=== PATIENT | female | born 2000 | race Hispanic/Latino ===

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

== ENCOUNTER → 2020-01-29 12:40 | Outpatient (CLI) | payer OTHER, MEDICAID, SELFPAY ==
[2020-01-04 17:21] VITALS: BMI 21.2
[2020-01-25 16:46] VITALS: BMI 21.2
== END ==
PROVIDERS: PCP Pediatrics; Visit Provider Otolaryngology
DX: Z11.59 Encounter for screening for other viral diseases (principal)
CPT/HCPCS: 87635; G2023; U0003

== ENCOUNTER → 2020-02-01 | Outpatient (CLI) | payer OTHER, MEDICAID, SELFPAY ==
[2020-01-25 16:46] VITALS: BMI 21.2
--- NOTE | 2020-02-01 07:42 | TONS_PTH ---
PATIENT: RIC MODI LOC: [facility] U#:[id number] AGE/SX: 19/F ROOM: RE02/01/[address]: Dr. Corey Cuellar MD : 2000 BED: DIS: 02/01/2020 SPEC #: [id number] RECD: 02/01/20 14:53 STATUS: VIKAS REKeily #: [id number] MARCOS: 02/01/20 07:[address]: Corey Cuellar DEPT: SURGICAL PATHOLOGY RECD BY: Mateusz Deng ENTERED: 02/02/20 07:34 SP TYPE: TONSILS OTHR DR: Dr. Brayden Do MD [facility] Tissues: Tonsil, NOS Procedures: Surgery Specimen Level III HEADER OPERATION: Tonsillectomy PRE-OP DIAGNOSIS: Chronic tonsillitis TISSUE SUBMITTED: Tonsils (right pinned) MICROSCOPIC DIAGNOSIS Bilateral tonsils, tonsillectomy: Reactive lymphoid hyperplasia, consistent with chronic tonsillitis. Focal actinomyces colonization. EBEN:mattie 02/05/20 MICROSCOPIC DESCRIPTION Slides are reviewed. GROSS DESCRIPTION Received is one container labeled with the patient's name and designated tonsils - pin/tie on right are two tonsils that in aggregate weigh 5.1 gm. The right tonsil has a pin-tie on it and measures 2 x 1.5 x 1.3 cm. The left tonsil measures 2 x 2 x 1.3 cm. Both tonsils are similar in appearance. The external surfaces are pink-stockton, smooth, glistening and somewhat lobulated. Focally they are hemorrhagic, granular and bear cautery artifact. Serial cross sections through the tonsils reveal normal tonsillar architecture. Sections are submitted in two cassettes as follows: 1 - right tonsil, 2 - left tonsil. / EBEN:mattie 02/02/20 TC:3 CPT: 86515 x2
== END | disposition home or self-care (01) ==
LOC: LABSPEC 16:01
PROVIDERS: PCP Pediatrics; Referring Provider Otolaryngology; Visit Provider Otolaryngology
DX: J35.01 Chronic tonsillitis (principal)
CPT/HCPCS: 88304

== ENCOUNTER 2020-02-08 20:40 | Emergency (ER) | payer OTHER, MEDICAID, SELFPAY ==
[2020-01-25 16:46] VITALS: BMI 21.2
[2020-02-08 20:41] VITALS: BP 122/67; PULSE 69; RESP 18; TEMP 36.3; O2SAT 99
[2020-02-08] MEDS: 0.9% Normal Saline 1,000 ML 1000 ML IV (21:05)
[2020-02-08] MEDS: dexAMETHasone 10 MG/ML Vial IV (21:08)
[2020-02-08 21:59] LABS: Hematocrit 45.1 % (37-47); Hemoglobin 14.7 g/dL (12.0-15.0)
--- NOTE | 2020-02-08 22:02 | ED.VISSUMM ---
- ER Visit Summary Date of Service: 02/08/20 Chief Complaint: Post tonsillectomy bleeding History of Present Illness: The patient is a [address] soto. She had a tonsillectomy on January [address] Cuellar. She reports that she has bleeding that began today. She states that she is spitting up blood-tinged sputum. She denies any significant amount of bleeding. She reports that she has a burning, throbbing pain in her throat that is 10 on 10 at worst and 6-10 currently. Is worsened by nothing. She relieved by Tylenol. Patient reports that she can feel a scab on the left side that is choking me. Patient reports she is nauseated. She denies any fever, chills, abdominal pain, vomiting, or diarrhea. Physical Examination: Vitals: Stable. Afebrile. General: Well-nourished and well-developed. Head: Normocephalic atraumatic. HEENT: Significant enlargement of her uvula which is elongated and has clear edema at the tip of this. Is actually touching the back of her tongue. There is a small amount of blood in her oropharynx. This appears to be from the left tonsillar fossa. I did not appreciate any foreign body or scab. Neck: Supple, no lymphadenopathy. No JVD. Nontender. Cardiovascular: Regular rate and rhythm. No murmurs. Respiratory: No respiratory distress. Clear to auscultation bilaterally. Abdominal: Soft, nontender, nondistended, normal bowel sounds. No guarding, rebound, or peritoneal signs. Back: Nontender. Extremities: Nontender, no edema. Skin: Normal color, no rash. Neurologic: Alert and oriented ?3. Cranial nerves II through XII are intact. Normal strength and sensation. Psych: Normal affect. Test Results: H&H is 14.7 and 45.1. Emergency Department Course and Treatment: Patient had an IV placed. She was given a liter normal saline. She was given dexamethasone IV. She refused pain or nausea medications. Treatment Plan: Patient was discussed with Dr. Cuellar. He will see her in the office tomorrow for another exam. Return to the emergency department for any worsening symptoms. Disposition: To home in improved and stable condition. Impression: 1. 7-days status post tonsillectomy. This note was generated with Dragon dictation software. It may contain incorrect words, spelling, and punctuation that were not noted in review of the chart prior to signing ED Disposition - Plan for ED Patient: Instructions: ED Tonsillectomy Post-Op Bleeding Referrals: Boone Cuellar MD [STAFF PHYSICIAN] - 1 Day for another exam
[2020-02-08 22:20] VITALS: BP 101/72; PULSE 79; RESP 18; O2SAT 99
== END 2020-02-08 22:21 | disposition home or self-care (01) ==
LOC: ED 21:21
PROVIDERS: Emergency Provider Emergency Medicine; PCP Pediatrics
DX: J95.830 Postprocedural hemorrhage of a respiratory system organ or structure following a respiratory system procedure (principal); Y83.8 Other surgical procedures as the cause of abnormal reaction of the patient, or of later complication, without mention of misadventure at the time of the procedure; Y92.9 Unspecified place or not applicable
CPT/HCPCS: 85014; 85018; 96361; 96374; 99283; J7030; A4216

== ENCOUNTER 2021-02-26 23:23 | Emergency (ER) | payer MEDICAID, SELFPAY ==
[2021-02-26 23:24] VITALS: BP 127/79; PULSE 100; RESP 18; TEMP 36.1; O2SAT 100; BMI 19.4
[2021-02-27] VITALS: BP 119/86; PULSE 97; RESP 23; O2SAT 99
--- NOTE | 2021-02-27 00:07 | EKG12_ITS ---
Test Reason : CHEST PAIN Blood Pressure : / mmHG Vent. Rate : 093 BPM Atrial Rate : 093 BPM P-R Int : 140 ms QRS Dur : 068 ms QT Int : 314 ms P-R-T Axes : 082 065 069 degrees QTc Int : 390 ms Normal sinus rhythm Biatrial enlargement Abnormal ECG Confirmed by PETER CLIFFORD, TESFAYE ([id number]), associate editor ALIYAH VELOZ ([id number]) on 03/03/2021 9:24:30 AM Referred By: BB Confirmed By:TESFAYE GREEN MD
--- NOTE | 2021-02-27 00:08 | EDS_ITS ---
HPI History of Present Illness Chief Complaint: Chest Pain Narrative Narrative: 20-year-old female presenting with right sided upper chest pain. She states this developed after she had an upper endoscopy today. She does not describe shortness of breath. She describes the pain is 7 of 10 in severity. Patient's upper endoscopy showed esophagitis. She is started on a PPI. Patient states that she has had some chronic nausea and difficulty keeping food down. She also states has had some weight loss. Her ALT was abnormal and she states that she was sent for a bone scan which was also normal. [facility] Medical History Bilateral headaches Chronic neck pain Chronic thoracic back pain Environmental allergies GERD (gastroesophageal reflux disease) Intertrigo Macromastia Shoulder pain Home Medications pantoprazole [Protonix] 40 mg PO DAILY 02/26/21 [History Last Taken Unknown] Allergy/AdvReac Type Severity Reaction Status Date / Time No Known Allergies Allergy Verified 11/13/20 10:48 Family History Grandmother Breast cancer Cancer Aunt Breast cancer Surgical History History of tonsillectomy History of wisdom tooth extraction Social History Smoking Status: Never smoker alcohol intake: never substance use type: does not use additional social history: Does Not Take Aspirin Does Not Take Ibuprofen ROS ROS ED Constitutional Constitutional ED: Denies chills or fever(s) Eyes Eyes: Denies blurry vision or change in vision ENT ENT ED: Denies rhinorrhea or sore throat Cardiovascular Cardiovascular: Reports chest pain; Denies palpitations or racing heartbeat Respiratory/Chest Respiratory/Chest: Reports cough; Denies dyspnea Gastrointestinal Gastrointestinal: Reports nausea and vomiting; Denies abdominal pain Genitourinary Genitourinary ED: Denies dysuria or hematuria Musculoskeletal Musculoskeletal: Denies arthralgias, back pain, myalgias or neck pain Integumentary Denies abscess or Abrasions Neurologic Neurologic: Denies headache(s) or paresthesias EXAM Physical Exam Const Vital Signs: 02/26/21 23:24 02/26/21 23:55 02/27/21 00:00 Temperature 96.9 F L Temperature Source Temporal Pulse Rate 100 97 Respiratory Rate 18 23 H Respiratory Effort Normal Blood Pressure 127/79 H 119/86 H Blood Pressure Mean 95 97 Pulse Ox 100 99 Oxygen Delivery Method Room Air Room Air 02/27/21 02:05 02/27/21 02:43 Temperature Temperature Source Pulse Rate 72 Respiratory Rate 14 Respiratory Effort Blood Pressure 100/64 Blood Pressure Mean Pulse Ox 98 Oxygen Delivery Method Room Air Positive well developed General Appearance ED: well developed and NAD; Negative for pallor HEENT Reports moist mucous membranes normocephalic and atraumatic Eyes PERRL and EOMs intact bilaterally Neck no lymphadenopathy and supple Neck Narrative: No crepitance Chest Wall inspection of chest normal and palpation of chest normal Resp normal respiratory effort and clear to auscultation bilaterally Effort and Inspection: respiratory distress Cardio regular rate and regular rhythm Neuro oriented x3 Sensorium / Orientation: awake and alert Psych mental status grossly normal Skin no rashes or lesions noted and no wounds General Skin Exam: Negative for jaundice or pallor Heart Score History: Slightly/Non-Suspicious ECG: Normal Age: </= 45 years Risk Factors: No Risk Factors Troponin: </= Normal Limit Score: 0 MDM MDM MDM Narrative Medical decision making narrative: Patient presented with right-sided chest pain which is sharp and aching and has been lasting since she had her endoscopy today. She does not report shortness of breath. EKG performed on arrival shows a sinus rhythm at 93 bpm without signs of ST elevation or depression on my interpretation. Chest x-ray shows no acute cardiopulmonary process on my interpretation and the radiologist does agree. Blood work shows a slight leukocytosis at 12.0, hemoglobin 13.2, crit 41.1, platelets 198. Renal function and electrolytes are normal. BUN/creatinine ratio is slightly elevated however patient has not complaining of lightheadedness or dizziness. She is likely a little bit dehydrated secondary to bowel prep. Her high-sensitivity troponin is negative at less than 3 and therefore rules her out for ACS. Patient was given morphine and Zofran and she felt improved. I feel she is safe to be discharged home at this point. Impression: 1. Chest pain noncardiac Lab Data Attestation: I reviewed the patient's lab results. Labs: Laboratory Results - last 24 hr 02/27/21 02/27/21 00:12 00:12 WBC 12.0 H RBC 4.82 Hgb 13.2 Hct 41.1 MCV 85.3 MCH 27.4 MCHC 32.1 RDW Std Deviation 45.1 H RDW Coeff of Franck 14.5 Plt Count 198 MPV 10.3 Immature Gran % (Auto) 0.300 Neut % (Auto) 70.5 H Lymph % (Auto) 22.4 Smyth % (Auto) 5.7 Eos % (Auto) 0.8 Baso % (Auto) 0.3 Absolute Neuts (auto) 8.4 H Absolute Lymphs (auto) 2.68 Nucleated RBC % 0 Sodium 142 Potassium 3.7 Chloride 105 Carbon Dioxide 30.0 Anion Gap 7 BUN 17 Creatinine 0.84 Estim Creat Clear Calc 88.76 Est GFR (MDRD) Af Amer 110 Est GFR (MDRD) Non-Af 91 BUN/Creatinine Ratio 20.3 H Glucose 103 Calcium 8.7 Troponin I High Sens < 3 L Radiography Diagnostic Testing: Radiology Impression Chest X-Ray 02/27/21 01:20 IMPRESSION: Normal x-ray examination of the chest. Electronically Signed: Berry Maldonado MD at 1:41 EDT Tel , Service support , Discharge Plan Triage Chief Complaint: Chest Pain ED Provider: Harpreet Alvarez Dx/Rx/DC Orders Instructions: ED Chest Pain, Noncardiac Prescriptions: No Action pantoprazole [Protonix] 40 mg Tablet,Delayed Release (Dr/Ec) 40 mg PO DAILY RF: 0 Primary Care Provider: Brayden Do Referrals: Brayden Do MD [Primary Care Provider] - Disposition Disposition: Home, Self Care Discharge Date/Time: 02/27/21 02:43
[2021-02-27 00:18] LABS: Absolute Lymphocyte Count 2.68 X10^3/uL (0.83-4.51); Absolute Neutrophil Count 8.4 X10^3/uL (2.0-7.7); Basophil# 0.04 X10^3/uL; Basophil% 0.3 % (0-1); Eosinophil# 0.09 X10^3/uL; Eosinophils% 0.8 % (0-5); Hematocrit 41.1 % (37-47); Hemoglobin 13.2 g/dL (12.0-15.0); Lymphocyte # 2.68 X10^3/ul (0.83-4.51); Lymphocyte % 22.4 % (19-41); Mean Corp Hgb Conc 32.1 g/dL (32-36); Mean Corpuscular Hgb 27.4 pg (27.0-32.0); Mean Corpuscular Volume 85.3 fL (81-99); Mean Platelet Vol. 10.3 fl (6.2-12.0); Monocyte# 0.68 X10^3/uL; Monocyte% 5.7 % (0-10); NRBC Flagged by Analyzer 0 % (0-5); Neutrophil # 8.42 X10^3/uL (2.7-7.7); Neutrophil % 70.5 % (47-70); Platelet Count 198 K/mm3 (150-450); RBC Distribution Width CV 14.5 % (11.6-14.6); RBC Distribution Width SD 45.1 fl (35.1-43.9); Red Blood Count 4.82 M/mm3 (4.2-5.4)
[2021-02-27] MEDS: Morphine 4 MG/ML Syringe IV (00:25)
[2021-02-27] MEDS: Ondansetron 4 MG/2 ML Vial IV (00:25)
[2021-02-27 00:37] LABS: Anion Gap 7 (5-15); BUN 17 mg/dL (7-18); BUN/Creat Ratio 20.3 RATIO (10-20); Calcium,Total 8.7 mg/dL (8.5-10.1); Chloride 105 mmol/L (98-107); Creatinine, Serum 0.84 mg/dL (0.55-1.02); EST Glomerular Filtration Rate 91 mL/min (>60); Est Glom Filt Rate - Afr Amer 110 mL/min (>60); Estimated Creatinine Clearance 88.76 ml/min; Glucose 103 mg/dL (74-106); Potassium 3.7 mmol/L (3.5-5.1); Sodium Level 142 mmol/L (136-145); Troponin-I HS < 3 pg/mL (3.0-54.0)
--- NOTE | 2021-02-27 01:20 | RAD_ITS ---
STUDY: X-RAY CHEST REASON FOR EXAM: Female, 20 years old. Chest pain TECHNIQUE: PA and lateral chest radiograph COMPARISON: None. FINDINGS: The lungs are clear and expanded. There is no demonstrated pleural abnormality. Normal size heart. Normal mediastinum and deanna. Normal visualized pulmonary arteries. Normal visualized aortic arch and descending thoracic aorta. Normal visualized thoracic spine. Normal visualized ribs, clavicles, and shoulders. There is no demonstrated abnormality of the visualized soft tissue structures of the upper abdomen. RAD/Chest PA and Lateral IMPRESSION: Normal x-ray examination of the chest. Electronically Signed: Berry Maldonado MD at 1:41 EDT Tel , Service support ,
[2021-02-27 02:43] VITALS: BP 100/64; PULSE 72; RESP 14; O2SAT 98
== END 2021-02-27 02:43 | disposition home or self-care (01) ==
PROVIDERS: Emergency Provider Student in an Organized Health Care Education/Training Program; PCP Pediatrics
DX: R07.89 Other chest pain (principal); K21.00 Gastro-esophageal reflux disease with esophagitis, without bleeding; R63.4 Abnormal weight loss; R11.2 Nausea with vomiting, unspecified; G89.29 Other chronic pain; M54.2 Cervicalgia; M54.6 Pain in thoracic spine
CPT/HCPCS: 71046; 80048; 84484; 85025; 93005; 96374; 96375; 99284; A4216; J2405

== ENCOUNTER → 2023-04-13 | Outpatient (CLI) | payer MEDICAID, SELFPAY ==
--- NOTE | 2023-04-13 10:16 | RAD_ITS ---
STUDY: X-RAY CHEST REASON FOR EXAM: Female, 22 years old. Persistent cough TECHNIQUE: PA and lateral views of the chest. COMPARISON: Comparison is made with prior studies February 27, 2021. FINDINGS: The lungs are clear and expanded. Scattered calcified granulomas. There is no demonstrated pleural abnormality. Normal size heart. Normal mediastinum and deanna. Normal visualized pulmonary arteries. Normal visualized aortic arch and descending thoracic aorta. Normal visualized thoracic spine. Normal visualized ribs, clavicles, and shoulders. There is no demonstrated abnormality of the visualized soft tissue structures of the upper abdomen. RAD/Chest PA and Lateral IMPRESSION: Normal x-ray examination of the chest. Electronically Signed: Erik Morejon MD at 14:49 EDT ,
[2023-04-13 12:11] LABS: Absolute Lymphocyte Count 1.36 X10^3/uL (0.83-4.51); Absolute Neutrophil Count 4.3 X10^3/uL (2.0-7.7); Basophil# 0.03 X10^3/uL; Basophil% 0.5 % (0-1); Eosinophil# 0.06 X10^3/uL; Hematocrit 44.7 % (37-47); Hemoglobin 14.8 g/dL (12.0-15.0); Lymphocyte # 1.36 X10^3/ul (0.83-4.51); Mean Corp Hgb Conc 33.1 g/dL (32-36); Mean Corpuscular Hgb 29.1 pg (27.0-32.0); Mean Corpuscular Volume 87.8 fL (81-99); Mean Platelet Vol. 11.6 fl (6.2-12.0); Monocyte# 0.36 X10^3/uL; Monocyte% 5.8 % (0-10); NRBC Flagged by Analyzer 0 % (0-5); Neutrophil # 4.34 X10^3/uL (2.7-7.7); Neutrophil % 70.4 % (47-70); Platelet Count 198 K/mm3 (150-450); RBC Distribution Width CV 12.8 % (11.6-14.6); RBC Distribution Width SD 41.5 fl (35.1-43.9); Red Blood Count 5.09 M/mm3 (4.2-5.4); White Blood Count 6.2 K/mm3 (4.4-11.0)
[2023-04-13 12:49] LABS: AST(SGOT) 20 U/L (15-37); Alanine Aminotransfer ALT/SGPT 29 U/L (13-56); Albumin, Serum 3.9 g/dL (3.2-5.0); Alkaline Phosphatase 97 U/L (45-117); Anion Gap 8 (5-15); BUN 11 mg/dL (7-18); BUN/Creat Ratio 14.2 RATIO (10-20); Calcium,Total 8.9 mg/dL (8.5-10.1); Chloride 105 mmol/L (98-107); Creatinine, Serum 0.77 mg/dL (0.55-1.02); EST Glomerular Filtration Rate 98 mL/min (>60); Est Glom Filt Rate - Afr Amer 118 mL/min (>60); Glucose 96 mg/dL (74-106); Potassium 3.3 mmol/L (3.5-5.1); Protein, Total 7.9 g/dL (6.4-8.2); Sodium Level 139 mmol/L (136-145); Thyroid Stim Hormone (TSH) 2.38 uIU/mL (0.358-3.74)
[2023-04-13 12:50] LABS: Vitamin D,25 Hydroxy 38.8 ng/mL
== END | disposition home or self-care (01) ==
PROVIDERS: PCP Internal Medicine; Referring Provider Internal Medicine; Visit Provider Internal Medicine
DX: F32.A Depression, unspecified (principal); F41.9 Anxiety disorder, unspecified; R05.8 Other specified cough
CPT/HCPCS: 36415; 71046; 80053; 82306; 84443; 85025

== ENCOUNTER 2023-05-30 14:17 | Emergency (ER) | payer MEDICAID, SELFPAY ==
[2023-05-30 14:19] VITALS: BP 114/80; PULSE 105; RESP 16; TEMP 36.4; O2SAT 100
--- NOTE | 2023-05-30 15:03 | RAD_ITS ---
EXAM: XR LEFT FOOT COMPLETE, 3 OR MORE VIEWS CLINICAL INDICATION: injury TECHNIQUE: Frontal, lateral and oblique views of the left foot. COMPARISON: No relevant prior studies available. FINDINGS: BONES/JOINTS: Comminuted fracture of the fifth metatarsal bone. Preservation of the joint space. No sclerotic or destructive changes observed. SOFT TISSUES: Unremarkable. No soft tissue swelling or gas. No radiopaque foreign body. RAD/Foot min 3 Views IMPRESSION: Comminuted fracture of the fifth metatarsal bone. Electronically Signed: Wes Cintron MD at 15:40 EST ,
--- NOTE | 2023-05-30 15:03 | RAD_ITS ---
EXAM: XR LEFT ANKLE COMPLETE, 3 OR MORE VIEWS CLINICAL INDICATION: injury TECHNIQUE: Frontal, lateral and oblique views of the left ankle. COMPARISON: No relevant prior studies available. FINDINGS: BONES/JOINTS: Unremarkable. No acute fracture. No subluxation. Normal alignment. Preservation of the joint space. No sclerotic or destructive changes observed. SOFT TISSUES: Unremarkable. No soft tissue swelling or gas. No radiopaque foreign body. RAD/Ankle min 3 Views IMPRESSION: Negative left ankle x-rays. Electronically Signed: Wes Cintron MD at 15:41 EST ,
--- NOTE | 2023-05-30 15:06 | EDS_ITS ---
HPI History of Present Illness Chief Complaint: Lower Extremity Injury Informant: patient Occured/Mechanism Mechanism/Context: Yes fall Onset/Context/Timing Onset: Today Context: Sudden Onset Timing: Continuous Quality of Pain: Aching Location: L foot/ankle Current Severity: Severe Maximum Severity: Severe Worsened by: moving, WBing Relieved by: rest Associated Symptoms Associated Symptoms: Negative for Parasthesia, Weakness or Loss of Funtion Narrative Narrative: Patient states she injured her left foot and ankle when she was practicing ice getting turned in the kitchen floor, she shows a video where it appears upon putting her left foot down it inverted as she slipped, causing her to fall, landing on the outside of her foot where the majority of the pain is. She denies other injury. Difficult to put weight on since the injury. States she felt a crack somewhere in her left foot when it happened. [facility] Medical History Bilateral headaches Chronic neck pain Chronic thoracic back pain Environmental allergies Family history of breast cancer GERD (gastroesophageal reflux disease) H/O emotional problems Intertrigo Macromastia Shoulder pain Home Medications albuterol sulfate 90 mcg/actuation aerosol inhaler 2 puff inhalation Q6H PRN shortness of breath or wheezing #8.5 grams 04/13/23 [Rx Last Taken Unknown] fluticasone propionate 50 mcg/actuation nasal spray,suspension (Flonase Allergy Relief) 1 spray intranasal DAILY PRN allergy symptoms #16 grams 04/13/23 [Rx Last Taken Unknown] bupropion HCl 150 mg tablet,12 hr sustained-release (Wellbutrin SR) 150 mg PO BID #60 ea 05/18/23 [Rx Last Taken Unknown] hydrocodone-acetaminophen 5-325mg 5mg-325mg 1 tab PO Q6H PRN PRN Pain 3 days #12 TABLETS 05/30/23 [Rx Last Taken Unknown] Allergy/AdvReac Type Severity Reaction Status Date / Time house dust Allergy Mild Rash Verified 05/18/23 08:05 Family History Grandmother Breast cancer Cancer Aunt Breast cancer Surgical History History of tonsillectomy History of wisdom tooth extraction Social History household members: family current occupational status: employed current occupation: daycare Smoking Status: Never smoker Electronic Cigarette Use: not used alcohol intake: never substance use type: does not use what type of physical activity do you participate in: none do you feel safe at home: Yes additional social history: Does Not Take Aspirin Does Not Take Ibuprofen ROS ROS ED Constitutional Constitutional ED: Denies chills or fever(s) Musculoskeletal Musculoskeletal: Reports extremity pain; Denies neck pain Integumentary Denies Abrasions, rash or wounds Neurologic Neurologic: Denies paresthesias or weakness EXAM Physical Exam Const Vital Signs: 05/30/23 14:19 Temperature 97.6 F L Temperature Source Temporal Pulse Rate 105 H Respiratory Rate 16 Blood Pressure 114/80 Blood Pressure Mean 91 Pulse Ox 100 Oxygen Delivery Method Room Air Positive well nourished and well developed General Appearance ED: well developed and NAD Neck full ROM and supple Back/Spine normal ROM and normal to inspection Extremity Extremity Narrative: Limited range of motion left ankle due to pain. She has tenderness in the left metatarsal, mostly the distal half where there is some bruising laterally localized swelling no deformities. No significant tenderness in any of the toes or the midfoot dorsally, but she does have some localized additional swelling and bruising with tenderness superior to the base of the fifth metatarsal which overall is nontender, just distal/anterior to the lateral malleolus, which is barely tender to posterior aspect distally. No deformities anywhere. Nontender at the proximal fibula and full range of motion of the knee and hip without any pain. No other foot tenderness including the heel. Neuro oriented x3, no focal motor deficits and no sensory deficits noted Sensorium / Orientation: alert Psych mental status grossly normal and thought process normal Skin no wounds Rashes: no rashes MDM MDM MDM Narrative Medical decision making narrative: Three-view x-ray series of the left foot as interpreted by myself and radiology shows a comminuted fracture of the fifth metatarsal shaft, it is in the distal half but does not involve the metaphysis or the joint. Three-view x-ray series of the left ankle on my interpretation is negative for fracture. Radiology in agreement. Discussed with Dr. Patel with podiatry, he recommends splinting the patient so she does not put any weight on it, given her crutches and pain medication following up soon in the office. Radiography Diagnostic Testing: Clinical Impression(s) from Imaging Studies Ankle X-Ray 05/30/23 15:03 IMPRESSION: Negative left ankle x-rays. Electronically Signed: Wes Cintron MD at 15:41 EST , Foot X-Ray 05/30/23 15:03 IMPRESSION: Comminuted fracture of the fifth metatarsal bone. Electronically Signed: Wes Cintron MD at 15:40 EST , Procedures Lower Extremity Splints Lower Extremity Splint: Orthoglass and - (Posterior short leg, extra width of orthoglass gently curved around peroneal aspect of foot where fx located and ankle dorsiflexed to 90 deg; neurovascularly intact distally after placement by myself.) Splint Fabrication: Fabricated Location: Left Discharge Plan Triage Chief Complaint: Lower Extremity Injury ED Provider: Kenny Sherwood Dx/Rx/DC Orders Clinical Impression: Closed fracture of fifth metatarsal bone of left foot, Left ankle sprain Instructions: Using Crutches: [id number]-[id number]-Ihrkvpf, ED Fracture, Foot, ED Splints and Casts Prescriptions: New hydrocodone-acetaminophen [hydrocodone-acetaminophen] 5-325 mg tablet 1 tab PO Q6H PRN PRN (Reason: Pain) 3 Days Qty: 12 0RF No Action fluticasone propionate [Flonase Allergy Relief] 50 mcg/actuation spray,suspension 1 spray intranasal DAILY PRN (Reason: allergy symptoms) Qty: 16 0RF Rx Instructions: administer into each nostril albuterol sulfate 90 mcg/actuation HFA aerosol inhaler 2 puff inhalation Q6H PRN (Reason: shortness of breath or wheezing) Qty: 8.5 0RF bupropion HCl [Wellbutrin SR] 150 mg tablet sustained-release 12 hr 150 mg PO BID Qty: 60 1RF Rx Instructions: take 1 tablet daily for 3 days, then increase to twice daily Primary Care Provider: Carmencita Bullard Referrals: Carmencita Bullard MD [Primary Care Provider] - Dev Patel DPM [Med Staff - Active Staff] - As soon as possible
[2023-05-30] MEDS: HYDROcodone Bitartrate/Apap 5/325 Tablet PO (15:54)
== END 2023-05-30 17:14 | disposition home or self-care (01) ==
PROVIDERS: Emergency Provider Emergency Medicine; PCP Internal Medicine; Visit Provider Emergency Medicine
DX: S92.352A Displaced fracture of fifth metatarsal bone, left foot, initial encounter for closed fracture (principal); S93.402A Sprain of unspecified ligament of left ankle, initial encounter; W01.0XXA Fall on same level from slipping, tripping and stumbling without subsequent striking against object, initial encounter; Y92.000 Kitchen of unspecified non-institutional (private) residence as the place of occurrence of the external cause; Z79.899 Other long term (current) drug therapy
CPT/HCPCS: 29515; 73610; 73630; 99283

== ENCOUNTER → 2023-06-17 | Outpatient (CLI) | payer MEDICAID, SELFPAY ==
--- NOTE | 2023-06-18 13:50 | SPIR_ITS ---
Spirometry PFT Testing Spirometry PFT Testing: COMPLETE PULMONARY FUNCTION TEST INTERPRETATION Brief HPI: Patient is a 22-year-old female, currently under the care of Dr. Bullard, who presents to [facility] for complete pulmonary function tests secondary to diagnosis of cough. Respiratory therapist reports good effort and reproducible results. Interpretation: Forced expiration spirometry shows no large airways obstructive ventilatory def ect with an FEV1 of 112% predicted. There is no significant bronchodilator response by strict ATS criteria. Spirograms are of good quality and plateau normally. The respiratory flow volume loop shows a normal pattern. No previous pulmonary function tests were available for review. Impression: Normal spirometry. Consider a bronchoprovocation study if asthma is suspected
== END | disposition home or self-care (01) ==
LOC: PSN 09:20
PROVIDERS: PCP Internal Medicine; Referring Provider Internal Medicine; Visit Provider Internal Medicine
DX: R05.8 Other specified cough (principal)
CPT/HCPCS: 94060

== ENCOUNTER 2023-07-19 09:00 | Outpatient (RCR) | payer MEDICAID, SELFPAY ==
--- NOTE | 2023-06-10 18:59 | HP.PTEVAL ---
Patient's Visit Information Visit Information Visit Information: RIC MODI is a 22 year old F referred to Physical Therapy by Dr. Carmencita Bullard MD with a diagnosis of Mid back pain, dorsalgia. Date of Evaluation: 06/10/23 Physical Therapist: Panfilo Pagan, DPT, OCS, CSCS Visit Plan Frequency: 3x /Week Duration: 4-6 Weeks Plan: 3x/week for 4-6 weeks 1. MH and US to L scapular rhomboids, DEEP tissue release to same 2. work on thoracic ext mobs and ext adn L rotation ROM/stretching 3. strengthen posture and scapula (start prone and work to gym achines) Subjective Subjective: Been having problems with back for long time. Had previous PT and chiropractic to show insurance. That was 2 yrs ago. Pain is mid back L >R and into L shoulder blade. it is conssistent. Insidious onset. 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 Constant but worse with standing or sitting for long time. Activity for > 1 hr. No numbenss or tingling. Sleep is interrupted if she overdoes it. On crutches due to L broken foot, NWB L now for another week. Crutches do not help or hurt back. 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 Prior went to gym for [employer]. CV and general ex and it did not make back worse(TM, stairmaster) Pain Mid back pain: Pain Intensity (Out of 10): 2 Pain Intensity Range: 2 and 7 Objective Objective: Ambulates with crutches NWB L into PT with unrelated broken foot and boot on foot holding L out in front. Feels better when aI ask her to flex knee behind her. Trasnfer adn gait I. Tender to palpation L scapular medial rhomboids and traps only, also tender to PA pressure mid thoracic spine in same area be scap. Limited thoracic extension in this same area, Forward shoulder protracted scap posture. Rounded kyphosis. L rotation thoracic is painful, r is not, slightly limited L.Kumbar and cervical AROM is full and WFL. ribs seem to be appropriate and not painful L and R. reflexes bi and tri and patella and achilles 2/3(L achilles not tested due to boot) sensation LE and UE WNL to gross light touch. strength is 4/5 in LE without myotomal problems, some thoracic pain with L hip flexion resisted. UE strength flexion and horiz adduction weak and unstable in shoulder 3/5, abd 3+ , all casue some L scap pain. elbows and wrists 4/5 without pain. Full aROM UE without increased pain. repeated L rotation seems to increase motion in rotation. - slump and - SLR. Balance/Special Test Scores Oswestry Low Back Score: 11 Goals Goal 1:: I appropriat eROM and strength to limit future problems. 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 Goal Time Frame: 4-6 Weeks Rehabilitation Potential Physical Therapy Diagnosis: mid thoracic pain which limits her comfort and work ability. Rehabilitation Potential: Fair Anticipated Interventions Patient/Client Instruction: Educate patient on: Condition and Plan of Care For the Purpose of:: To decrease pain, To increase ROM, To improve nutrient delivery to tissue, To improve muscle performance and motor function, To increase tolerance to activity/condition/position and To improve ability of physical actions for home/community/work/leisure Therapeutic Exercise to Include: Strength training, Postural training, Flexibilty training, Passive ROM, Active ROM and Reji Exercises For the Purpose of:: To decrease pain, To increase ROM, To improve nutrient delivery to tissue, To improve muscle performance and motor function, To increase tolerance to activity/condition/position and To improve ability of physical actions for home/community/work/leisure Manual Therapy Techniques to Include: Mobilization, Passive ROM and Soft tissue mobilization For the Purpose of:: To decrease pain, To increase ROM, To improve nutrient delivery to tissue, To improve muscle performance and motor function, To increase tolerance to activity/condition/position and To improve ability of physical actions for home/community/work/leisure Thermo therapy (hot pack): Yes Ultrasound (thermal/non thermal): Yes (thermal) For the Purpose of:: To decrease pain, To increase ROM, To improve nutrient delivery to tissue and To improve muscle performance and motor function Text: Thank you for the opportunity to evaluate your patient. For Medicare and Medicare HMO plans, please review the plan of care and approve it. It will need to be FAXED BACK to us at [phone] for Medicare purposes. For Medicare only, by signing this I certify the plan of care. Please let me know if there are questions or concerns regarding this plan of care. Physician Signature: Date:
--- NOTE | 2023-07-13 17:11 | HP.PTREVAL ---
Re-Evaluation Intro: Dr. Carmencita Bullard MD, It has been my pleasure to treat RIC MODI over the last 9 visits for Mid back pain, dorsalgia. Please see the progress note below for an update on the physical therapy plan of care! Subjective Subjective: Pt and doctor requesting note from therapist regarding lack of sufficient progress. Objective Objective/Function: Overall based on a review of daily notes, pt seems to get minimal short lasting relief fromt he treatments and no lasting relief. Better days and worse days and today pain is worse than usual. Pt was not seen today by therapist but seems to be lacking credible improvement based on notes, unable to check objectively today. However, she has been seen for a lot of treatments and now would be a good time for patient to see doctor for next medical step due to lack of improvement. Plan Plan Plan: Continue plan of care unless doctor office has other recommendations based on this note 4 more visits in POC. Balance/Gait/Functional tests Balance/Special Test Scores Oswestry Low Back Score: 11 Goals Goals Goal 1:: I appropriat eROM and strength to limit future problems. 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 Goal Time Frame: 4-6 Weeks Anticipated Interventions Anticipated Interventions Patient/Client Instruction: Educate patient on: Condition and Plan of Care For the Purpose of:: To decrease pain, To increase ROM, To improve nutrient delivery to tissue, To improve muscle performance and motor function, To increase tolerance to activity/condition/position and To improve ability of physical actions for home/community/work/leisure Therapeutic Exercise to Include: Strength training, Postural training, Flexibilty training, Passive ROM, Active ROM and Reji Exercises For the Purpose of:: To decrease pain, To increase ROM, To improve nutrient delivery to tissue, To improve muscle performance and motor function, To increase tolerance to activity/condition/position and To improve ability of physical actions for home/community/work/leisure Manual Therapy Techniques to Include: Mobilization, Passive ROM and Soft tissue mobilization For the Purpose of:: To decrease pain, To increase ROM, To improve nutrient delivery to tissue, To improve muscle performance and motor function, To increase tolerance to activity/condition/position and To improve ability of physical actions for home/community/work/leisure Thermo therapy (hot pack): Yes Ultrasound (thermal/non thermal): Yes (thermal) For the Purpose of:: To decrease pain, To increase ROM, To improve nutrient delivery to tissue and To improve muscle performance and motor function Re-Evaluation Ending Re-evaluation ending: Please do not hesitate to contact me at [phone] by phone or if you have questions or concerns regarding this new plan of care! Sincerely, Panfilo Pagan, DPT, OCS, CSCS
--- NOTE | 2023-07-19 09:46 | HP.PTDCSUM_ITS ---
Discharge Summary D/C summary: It has been my pleasure to treat RIC MODI referred by Dr. Carmencita Bullard MD, with the diagnosis of Mid back pain, dorsalgia for a total of 11 visit(s). Discharge Date: 07/19/23 Please see the following information for a summary of their discharge status. Subjective Subjective: Pain this weekend up to 8/[address] [place] walking around. Worse as she walks more. Sleep is still interrupted but can sleep once sleeping. Sometimes worse in morning. 410 this am is a good day. Rarely has no pain. Pain Mid back pain: Pain Intensity (Out of 10): 4 Overall Improvement % Improvement: 0 Objective Objective/Function: Full aROM LB but L rotation causes some discomfort. tender L thoracic paraspinals moderately. Hurts to contract these muscles also with increased pain spinal extension resisted and UE flexion L resisted. Overall similar to initial day despite her compliance with HEp and treatments in clinic. Goals Goal 1:: I appropriat eROM and strength to limit future problems. 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 Goal Progress: Not Progressing Plan Plan: d/c, pt back to ([place] is who she is f[facility]u [facility]) for next medical step. D/C Information Discharge Comments: Back to doctor for next medical step d/c sentence: If there are questions or concerns regarding this patient's physical therapy, please feel free to call me at [phone]. Thank you for the referral of this patient. Sincerely, Panfilo Pagan, DPT, OCS, CSCS Balance/Gait/Functional tests Balance/Special Test Scores Oswestry Low Back Score: 19 Improvement % Improvement: 0
== END 2023-07-19 19:00 | disposition home or self-care (01) ==
LOC: PT 09:00
PROVIDERS: PCP Internal Medicine; Referring Provider Internal Medicine; Visit Provider Internal Medicine
DX: M54.9 Dorsalgia, unspecified (principal)
CPT/HCPCS: 97035; 97110; 97140; 97161; 97164

== ENCOUNTER → 2023-08-11 | Outpatient (CLI) | payer MEDICAID, SELFPAY ==
--- OUTSIDE RECORDS SUMMARY | 2023-08-11 06:36 | XMS RPT_ITS | CCD ---
Author Name Unknown Address [address] [place] [address] [id number] [place] [address] Organization [facility] Care Team Providers Care Apiculture Teacher Name Role Phone PROVIDER, UNKNOWN Attending Unavailable PROVIDER, UNKNOWN Admitting Unavailable PATIENT, SELF Referring Unavailable Michelle Barber MD Primary Care Provider Unavailable Primary Care Provider UnavailMICHELLE Hahn Primary Care Unavailable MICHELLE BARBER Primary Care Unavailable MICHELLE BARBER Primary Care Unavailable LOVE SEGOVIA Attending Unavailable Allergies Allergy Classification Reported Allergen(s) Allergy Type Date of Onset Reaction(s) Facility (1 source) House dust mite; Translations: [DUST MITE EXTRACT] Propensity to adverse reactions to drug (disorder) 1 [facility] Repository (1 source) House dust mite; Translations: [DUST MITES] Propensity to adverse reactions (disorder) [address] [facility] Repository Medications Current Medications Medication Drug Class(es) Dates Sig (Normalized) Sig (Original) benzonatate 100 mg oral capsule (1 source) Non-narcotic Antitussive Start: 01-14-2023 End: 01-29-2023 take 1 capsule by mouth every eight hours as needed benzonatate (TESSALON PERLE) 100 mg capsule Take 1 capsule by mouth every 8 hours as needed for cough for up to 15 days. 30 capsule 0 01/14/2023 01/29/2023 Active Completed/Discontinued Medications Medication Drug Class(es) Dates Sig (Normalized) Sig (Original) ascorbic acid 1000 mg oral tablet (3 sources) Vitamin C End: 01-14-2023 take 1 tablet by mouth once daily Ascorbic Acid 1,000 mg tablet Take 1,000 mg by mouth once daily. 0 01/14/2023 Discontinued Problems Active Problems Problem Classification Problem Date Documented Date Episodic/Chronic Anxiety disorders (3 sources) Mixed anxiety and depressive disorder; Translations: [Other specified anxiety disorders] Onset: 10-01-2020 10-01-2020 Chronic Inflammation; infection of eye (except that caused by tuberculosis or sexually transmitteddisease) (1 source) Acute conjunctivitis of right eye; Translations: [Unspecified acute conjunctivitis, right eye] Episodic Nonmalignant breast conditions (2 sources) Pain of breast; Translations: [Mastodynia] Onset: 12-09-2022 Episodic Other circulatory disease (3 sources) Raynaud's disease; Translations: [Raynaud's syndrome without gangrene] Onset: 10-01-2020 10-01-2020 Chronic Other lower respiratory disease (1 source) Cough; Translations: [Acute cough] Episodic Other upper respiratory disease (3 sources) Allergic rhinitis due to house dust mite; Translations: [Other allergic rhinitis] Onset: 01-22-2021 01-22-2021 Chronic Other upper respiratory infections (1 source) Upper respiratory infection; Translations: [Acute upper respiratory infection, unspecified] Episodic Past or Other Problems Problem Classification Problem Date Documented Da te Episodic/Chronic Spondylosis; intervertebral disc disorders; other back problems (3 sources) Chronic thoracic back pain; Translations: [Pain in thoracic spine] Onset: 10-09-2020 10-09-2020 Episodic Results Test Name Value Interpretation Reference Range Facil ity Vital Signs Date Time Vital Sign Value Performing Clinician Faci eliciay 01-14-2023 19:41-0400 Body temperature 97.59 [degF] Mark Rodriguez MD Work Phone: [facility] 01-14-2023 19:41-0400 Body weight 60.06 kg Mark Rodriguez MD Work Phone: [facility] 01-14-2023 19:41-0400 Diastolic blood pressure 66 mm[Hg] Mark Rodriguez MD Work Phone: [facility] 01-14-2023 19:41-0400 Heart rate 132 /min Mark Rodriguez MD Work Phone: [facility] 01-14-2023 19:41-0400 Respiratory rate 18 /min Mark Rodriguez MD Work Phone: [facility] 07-06-2023 19:41-0400 Systolic blood pressure 110 mm[Hg] Mark Rodriguez MD Work Phone: [facility] 12-09-2022 11:14-0400 Body weight 60.33 kg Love Carrts DIRECTOR [employer].CNM Work Phone: [facility] 12-09-2022 11:14-0400 Diastolic blood pressure 62 mm[Hg] Love Plotts DIRECTOR [employer].CNM Work Phone: [facility] 12-09-2022 11:14-0400 Systolic blood pressure 100 mm[Hg] Love Plotts DIRECTOR [employer].CNM Work Phone: [facility] 11-18-2022 12:15-0400 Body temperature 97.59 [degF] Gabby Praisler-Wood DIRECTOR [employer] Work Phone: [facility] 11-18-2022 12:15-0400 Body weight 61.51 kg Gabby Praisler-Wood DIRECTOR [employer] Work Phone: [facility] 11-18-2022 12:15-0400 Diastolic blood pressure 70 mm[Hg] Gabby Praisler-Wood DIRECTOR [employer] Work Phone: [facility] 11-18-2022 12:15-0400 Heart rate 70 /min Gabby Praisler-Wood DIRECTOR [employer] Work Phone: [facility] 11-18-2022 12:15-0400 Respiratory rate 18 /min Gabby Praisler-Wood DIRECTOR [employer] Work Phone: [facility] 11-18-2022 12:15-0400 SaO2% (BldA) [Mass fraction] 99 % Gabby Praisler-Wood DIRECTOR [employer] Work Phone: [facility] 11-18-2022 12:15-0400 Systolic blood pressure 102 mm[Hg] Gabby Praisler-Wood DIRECTOR [employer] Work Phone: [facility] Encounters Encounter Date Encounter Type Care Provider Facility Start: 01-14-2023 End: 01-14-2023 ambulatory MICHELLE STRONG Facility:[facility] Start: 01-14-2023 End: 01-14-2023 Patient encounter procedure Mark Rodriguez MD Work Phone: [facility] Plan of Treatment Date Care Activity Detail Author Start: 08-26-2026 Urine microalbumin profile DTAP,TDAP,TD (8 - Td or Tdap) [facility] Start: 03-03-2024 PAP TESTING PAP TESTING [facility] Start: 03-12-2023 Influenza vaccination [facility] Start: 09-13-2021 COVID-19 VACCINE (4 - Booster for Moderna series) COVID-19 VACCINE (4 - Booster for Moderna series) [facility] Start: 02-21-2019 CHLAMYDIA SCREENING (18-24) CHLAMYDIA SCREENING (18-24) [facility] Start: 02-21-2019 GC (GONORRHEA) SCREENING (18-24) GC (GONORRHEA) SCREENING (18-24) [facility] Start: 10-27-2013 PEDS TO ADULT TRANSITION ANNUAL ASSESSMENT PEDS TO ADULT TRANSITION ANNUAL ASSESSMENT [facility] Start: 2011 PEDS TO ADULT TRANSITION INITIAL DISCUSSION PEDS TO ADULT TRANSITION INITIAL DISCUSSION [facility] Start: 10-27-2009 MENINGOCOCCAL B: Consider based on risk (1 of 2 - Risk Bexsero 2-dose series) MENINGOCOCCAL B: Consider based on risk (1 of 2 - Risk Bexsero 2-dose series) [facility] End: 01-08-2024 ABBY DIAGNOSTIC BILATERAL ABBY DIAGNOSTIC BILATERAL Radiology Routine Mastalgia 1 Occurrences starting 12/09/2022 until 01/08/[address] [facility] Work Phone: Immunizations Immunization Date Immunization Notes Care Provider Wayen reynolsd 08-26-2016 tetanus toxoid, redu joseph diphtheria toxoid, and acellular pertussis vaccine, adsorbed Gabby Manzano DIRECTOR [employer] Work Phone: [facility] 12-23-2015 meningococcal polysaccharide (groups A, C, Y and W-135) diphtheria toxoid conjugate vaccine (MCV4P) Gabby Manzano APRN.[employer] Work Phone: [facility] 02-12-2012 human papilloma viru s vaccine, quadrivalent Gabby Manzano DIRECTOR [employer] Work Phone: [facility] Work Phone: 02-12-2012 varicella virus vaccine Harleen y Jose Juan DIRECTOR [employer].[facility] Work Phone: [facility] Work Phone: 05-14-2011 influenza virus vacc ine, live, attenuated, for intranasal use Gabbysharon Lau-Wood DIRECTOR [employer].[facility] Work Phone: [facility] Work Phone: 12-12-2010 human papilloma viru s vaccine, quadrivalent Gabbysharon Lau-Ricardo DIRECTOR [employer].[facility] Work Phone: [facility] 12-12-2010 Meningococcal, MCV4, unspecified conjugate formulation(groups A, C, Y and W-135) Gabby Manzano DIRECTOR [employer].[facility] Work Phone: [facility] 12-12-2010 tetanus toxoid, redu joseph diphtheria toxoid, and acellular pertussis vaccine, adsorbed Gabby Manzano DIRECTOR [employer].[facility] Work Phone: [facility] 05-14-2010 human papilloma viru s vaccine, quadrivalent Gabbysharon Lau-Ricardo DIRECTOR [employer].[facility] Work Phone: [facility] 04-26-2010 influenza virus vacc ine, live, attenuated, for intranasal use Gabby Manzano DIRECTOR [employer].[facility] Work Phone: [facility] Work Phone: 04-13-2009 influenza virus vacc ine, live, attenuated, for intranasal use Gabby Lau-Wood DIRECTOR [employer] Work Phone: [facility] Work Phone: 05-02-2008 influenza virus vacc ine, live, attenuated, for intranasal use Gabby Lau-Wood DIRECTOR [employer] Work Phone: [facility] Work Phone: 05-16-2007 influenza virus vacc ine, unspecified formulation Gabby Lau-Ricardo DIRECTOR [employer] Work Phone: [facility] Work Phone: 05-11-2006 influenza virus vacc ine, unspecified formulation Gabby Manzano DIRECTOR [employer].[facility] Work Phone: [facility] Work Phone: 05-12-2005 influenza virus vacc ine, unspecified formulation Gabby Manzano DIRECTOR [employer].[facility] Work Phone: [facility] Work Phone: 10-30-2004 diphtheria, tetanus toxoids and acellular pertussis vaccine Gabby Manzano DIRECTOR [employer].[facility] Work Phone: [facility] Work Phone: 10-30-2004 measles, mumps and rubella virus vaccine Gabby Manzano DIRECTOR [employer].[facility] Work Phone: [facility] Work Phone: 10-30-2004 poliovirus vaccine, inactivated Gabby Manzano DIRECTOR [employer].[facility] Work Phone: [facility] Work Phone: 06-16-2003 influenza virus vacc ine, unspecified formulation Gabby Manzano DIRECTOR [employer].[facility] Work Phone: [facility] Work Phone: 06-13-2002 influenza virus vacc ine, unspecified formulation Gabby Manzano DIRECTOR [employer].[facility] Work Phone: [facility] Work Phone: 05-13-2002 influenza virus vacc ine, unspecified formulation Gabby Manzano DIRECTOR [employer] Work Phone: [facility] Work Phone: 03-16-2002 pneumococcal conjuga te vaccine, 7 valent Gabby Manzano APRN.[facility] Work Phone: [facility] Work Phone: 07-15-2001 hepatitis B vaccine, pediatric or pediatric/adolescent dosage Gabby Manzano APRN.[facility] Work Phone: [facility] Work Phone: 07-15-2001 poliovirus vaccine, inactivated Gabby Manzano DIRECTOR [employer].[facility] Work Phone: [facility] Work Phone: 02-07-2001 diphtheria, tetanus toxoids and acellular pertussis vaccine Gabby Manzano DIRECTOR [employer].[facility] Work Phone: [facility] Work Phone: 02-07-2001 haemophilus influenz ae type b vaccine, HbOC conjugate Gabby Manzano DIRECTOR [employer].[facility] Work Phone: [facility] Work Phone: 2000 measles, mumps and rubella virus vaccine Gabby Manzano DIRECTOR [employer].[facility] Work Phone: [facility] Work Phone: 2000 pneumococcal conjuga te vaccine, 7 valent Gabby Manzano DIRECTOR [employer].[facility] Work Phone: [facility] Work Phone: 2000 varicella virus vaccine Harleen jessica Manzano DIRECTOR [employer].[facility] Work Phone: [facility] Work Phone: 08-03-2000 hepatitis B vaccine, pediatric or pediatric/adolescent dosage Gabby Manzano DIRECTOR [employer].[facility] Work Phone: [facility] Work Phone: 08-03-2000 pneumococcal conjuga te vaccine, 7 valent Gabby Manzano DIRECTOR [employer].[facility] Work Phone: [facility] Work Phone: 04-27-2000 diphtheria, tetanus toxoids and acellular pertussis vaccine Gabby Manzano DIRECTOR [employer].[facility] Work Phone: [facility] Work Phone: 04-27-2000 haemophilus influenz ae type b vaccine, HbOC conjugate Gabby Manzano DIRECTOR [employer].[facility] Work Phone: [facility] Work Phone: 04-27-2000 hepatitis B vaccine, pediatric or pediatric/adolescent dosage Gabby Lau-Ricardo DIRECTOR [employer].[facility] Work Phone: [facility] Work Phone: 04-27-2000 pneumococcal conjuga te vaccine, 7 valent Gabby Lau-Ricardo DIRECTOR [employer].[facility] Work Phone: [facility] Work Phone: 03-16-2000 diphtheria, tetanus toxoids and acellular pertussis vaccine Gabby Praisler-Ricardo DIRECTOR [employer].[facility] Work Phone: [facility] Work Phone: 03-16-2000 haemophilus influenz ae type b vaccine, HbOC conjugate Gabby Praisbetito-Wood DIRECTOR [employer].[facility] Work Phone: [facility] Work Phone: 03-16-2000 poliovirus vaccine, inactivated Gabby Pramarvin-Wood DIRECTOR [employer] Work Phone: [facility] Work Phone: 1999 diphtheria, tetanus toxoids and acellular pertussis vaccine Gabby Praisler-Wood DIRECTOR [employer].[facility] Work Phone: [facility] Work Phone: 1999 haemophilus influenz ae type b vaccine, HbOC conjugate Gabby Praisbetito-Wood DIRECTOR [employer].[facility] Work Phone: [facility] Work Phone: 1999 poliovirus vaccine, inactivated Gabby Praisler-Wood DIRECTOR [employer].[facility] Work Phone: [facility] Work Phone: Payers Date Payer Category Payer Medicaid [facility] MEDICAID [facility] COMMUNITY PLAN MEDICAID OF [place] [id number] 2022-Present [phone] [address] [place] [address] Medicaid [id number] 2022 Medicaid [id number] 2017 Medicaid [id number] 1999 Unknown [id number] Social History Date Type Detail Facility [facility]: [facility] Start: 11-05-2022 Tobacco use and exposure Smoke less tobacco non-user [facility] Start: 11-18-2022 End: 01-14-2023 Alcohol intake Current non-drinker of alcohol (finding) [facility] Start: 2000 Sex Assigned At Female C [facility] Clinical Notes 11-05-2022 to 01-14-2023 Mark Rodriguez MD - 01/14/2023 7:44 PM Ameya Segovia APRN.CNM - 12/09/2022 11:10 AM Saadia Manzano APRN.[employer] - 11/18/2022 12:27 PM EDTPatient Instructions Note Date & Type Note Facility 01-14-2023 Note HNO ID: [id number] Author: Mark Rodriguez MD Service: ? Author Type: Physician Type: Progress Notes Filed: 01/14/2023 7:56 PM Note Text: Patient presents with: Cough: Pt reported cough, x2 wks. HPI: Coughing for 2 weeks. Positive symptoms: Cough, slight Wheezing, Fatigue, Headache (between eyes), Negative symptoms: Shortness of breath, Sore throat, Sinus pressure, Nasal Congestion, Rhinorrhea, Fever, Chills, OTC: Robitussin Denies history of asthma or wheezing with colds. No history of pneumonia. MEDICATIONS: Current Outpatient Medications Medication Sig levonorgestrel (KYLEENA) 17.5 mcg/24 hrs (5 yrs) 19.5 mg IUD 1 Each by INTRAUTERINE route as directed. No current facility-administered medications for this visit. ALLERGIES: ALLERGIES Allergen Reactions Dust Mites Unknown Verified by skin testing VITALS: BP 110/66 Pulse (!) 132 Temp 36.4 ?C (97.6 ?F) (Temporal) Resp 18 Wt 60.1 kg (132 lb 6.4 oz) LMP 01/10/2023 (Approximate) BMI 22.03 kg/m? PHYSICAL EXAM: GEN: Pleasant, in no acute distress. HEENT: PERRL, EOMI, conjunctiva clear Ears: canals clear. TMs without erythema, bulge, or effusion Sinuses: non-tender frontal sinus, non-tender maxillary sinuses Throat: moist mucous membranes, no erythema, no exudate Neck: supple, no thyromegaly, no lymphadenopathy HEART: regular rate and rhythm during my exam, no murmurs LUNGS: clear to auscultation, no wheezes or crackles, no increased WOB. Regular coughing. ASSESSMENT/PLAN: 1. Acute cough - ICD9: 786.2, ICD10: R05.1 Benign lung exam. Probable bronchitis. Discussed bronchitis pathophysiology and reviewed rationale for treatment. Tessalon cough suppressant sent. Follow up with worsening cough, worsening shortness of breath, increasing chest pain, or late onset fever. Mark Rodriguez MD [facility] 01-14-2023 History of Presen t illness Narrative Patient presents with: Cough: Pt reported cough, x2 wks. HPI: Coughing for 2 weeks. Positive symptoms: Cough, slight Wheezing, Fatigue, Headache (between eyes), Negative symptoms: Shortness of breath, Sore throat, Sinus pressure, Nasal Congestion, Rhinorrhea, Fever, Chills, OTC: Robitussin Denies history of asthma or wheezing with colds. No history of pneumonia. MEDICATIONS: Current Outpatient Medications Medication Sig levonorgestrel (KYLEENA) 17.5 mcg/24 hrs (5 yrs) 19.5 mg IUD 1 Each by INTRAUTERINE route as directed. No current facility-administered medications for this visit. ALLERGIES: ALLERGIES Allergen Reactions Dust Mites Unknown Verified by skin testing VITALS: BP 110/66 Pulse (!) 132 Temp 36.4 C (97.6 F) (Temporal) Resp 18 Wt 60.1 kg (132 lb 6.4 oz) LMP 01/10/2023 (Approximate) BMI 22.03 kg/m PHYSICAL EXAM: GEN: Pleasant, in no acute distress. HEENT: PERRL, EOMI, conjunctiva clear Ears: canals clear. TMs without erythema, bulge, or effusion Sinuses: non-tender frontal sinus, non-tender maxillary sinuses Throat: moist mucous membranes, no erythema, no exudate Neck: supple, no thyromegaly, no lymphadenopathy HEART: regular rate and rhythm during my exam, no murmurs LUNGS: clear to auscultation, no wheezes or crackles, no increased WOB. Regular coughing. ASSESSMENT/PLAN: 1. Acute cough - ICD9: 786.2, ICD10: R05.1 Benign lung exam. Probable bronchitis. Discussed bronchitis pathophysiology and reviewed rationale for treatment. Tessalon cough suppressant sent. Follow up with worsening cough, worsening shortness of breath, increasing chest pain, or late onset fever. Mark Rodriguez MD documented in this encounter [facility] 12-09-2022 Note HNO ID: [id number] Author: Love Segovia APRN.CNM Service: ? Author Type: Lines Tender Type: Progress Notes Filed: 12/09/2022 12:18 PM Note Text: Caustic Cresylate Shift Superintendent offered: Patient declines. BREAST PAIN HISTORY: This is a 22 year old female Presents with mastalgia bilaterally Tenderness Yes, Change in sizeYes, increase - Right breast Any history breast mass no but history of breast pain bilaterally Caffeine use No Last [id number] normal Contraception- Kyleena Any previous breast surgery No Any family history breast disease/ breast cancer Yes- grandmother and aunt OB History T0 L0 SAB0 IAB0 Ectopic0 Multiple0 Live Births0 PAST MEDICAL HISTORY Diagnosis Date Encounter for insertion of intrauterine contraceptive device (IUD) 06/28/2020 Migraines PMH - PAST MEDICAL HISTORY OF 2006 normal color vision PMH - PAST MEDICAL HISTORY OF wears glasses - Dr Rothman Right ovarian cyst 02/21/2018 multiple right ovarians cysts on CT in ER at [facility] PAST SURGICAL HISTORY Procedure Laterality Date EGD 02/26/2021 KYLEENA IUD 06/28/2020 Placed in office NONE FAMILY HISTORY Problem Relation Age of Onset Prostate Cancer Maternal Grandfather Cancer Paternal Grandmother breast cancer Breast Cancer Paternal Grandmother aunt Colon Cancer No Family History SOCIAL HISTORY Social History Tobacco Use Smoking status: Never Smokeless tobacco: Never Vaping Use Vaping Use: Never used Substance Use Topics Alcohol use: No Drug use: No PAST SURGICAL HISTORY Procedure Laterality Date EGD 02/26/2021 KYLEENA IUD 06/28/2020 Placed in office NONE Current Outpatient Medications Medication Sig levonorgestrel (KYLEENA) 17.5 mcg/24 hrs (5 yrs) 19.5 mg IUD 1 Each by INTRAUTERINE route as directed. Bhjqcxrunhtcemw-Mxeygvtmm-VQ (BROMFED DM) 2-30-10 mg/5 mL syrup Take 5 mL by mouth four times daily as needed. pantoprazole DR (PROTONIX) 40 mg tablet Take 1 tablet by mouth once daily. 30 minutes before meal. (Patient not taking: Reported on 11/05/2022) polyethylene glycol 3350 (MIRALAX) 17 gram/dose powder Take 17 g by mouth once daily. Dissolve dose in 4 - 8 ounces of liquid and take as directed. (Patient not taking: Reported on 11/05/2022) Lactobacillus acidophilus (PROBIOTIC ORAL) Take by mouth. (Patient not taking: Reported on 11/05/2022) wheat dextrin (BENEFIBER CLEAR SF, DEXTRIN, ORAL) Take by mouth. (Patient not taking: Reported on 11/05/2022) MULTIVITAMIN ORAL Take by mouth. (Patient not taking: Reported on 11/05/2022) Carar-6-WLH-EPA-Fish Oil 1,000 mg (120 mg-180 mg) cap Take 2 g by mouth twice daily. (Patient not taking: Reported on 11/05/2022) Ascorbic Acid 1,000 mg tablet Take 1,000 mg by mouth once daily. (Patient not taking: Reported on 11/05/2022) PURE L-THREONINE ORAL Take by mouth. (Patient not taking: Reported on 11/05/2022) No current facility-administered medications for this visit. Allergies As of Date: 12/09/2022 Allergen Noted Reaction DUST MITES 01/22/2021 Unknown Fully Assessed 11/18/2022 EXAMINATION: There is no concerning cervical, supraclavicular, or axillary lymphadenopathy. She has bilateral fibrocystic changes. On the left are no dominant masses, skin changes or nipple discharge. On the Right there is dominant fullness, fibrocysytic changes, and tenderness to palpation around 5 o'clock position next to areola. No skin changes or nipple discharge. ASSESSMENT/PLAN: 1. Mastalgia - ICD9: 611.71, ICD10: N64.4 - ABBY DIAGNOSTIC BILATERAL - US BREAST LTD RIGHT Will follow up with patient after imaging Love Segovia APRN.DIPTI [facility] 12-09-2022 History of Presen t illness Narrative Caustic Cresylate Shift Superintendent offered: Patient declines. BREAST PAIN HISTORY: This is a 22 year old female Presents with mastalgia bilaterally Tenderness Yes, Change in sizeYes, increase - Right breast Any history breast mass no but history of breast pain bilaterally Caffeine use No Last [id number] normal Contraception- Kyleena Any previous breast surgery No Any family history breast disease/ breast cancer Yes- grandmother and aunt OB History T0 L0 SAB0 IAB0 Ectopic0 Multiple0 Live Births0 PAST MEDICAL HISTORY Diagnosis Date Encounter for insertion of intrauterine contraceptive device (IUD) 06/28/2020 Migraines PMH - PAST MEDICAL HISTORY OF 2006 normal color vision PMH - PAST MEDICAL HISTORY OF wears glasses - Dr Rothman Right ovarian cyst 02/21/2018 multiple right ovarians cysts on CT in ER at [facility] PAST SURGICAL HISTORY Procedure Laterality Date EGD 02/26/2021 KYLEENA IUD 06/28/2020 Placed in office NONE FAMILY HISTORY Problem Relation Age of Onset Prostate Cancer Maternal Grandfather Cancer Paternal Grandmother breast cancer Breast Cancer Paternal Grandmother aunt Colon Cancer No Family History SOCIAL HISTORY Social History Tobacco Use Smoking status: Never Smokeless tobacco: Never Vaping Use Vaping Use: Never used Substance Use Topics Alcohol use: No Drug use: No PAST SURGICAL HISTORY Procedure Laterality Date EGD 02/26/2021 KYLEENA IUD 06/28/2020 Placed in office NONE Current Outpatient Medications Medication Sig levonorgestrel (KYLEENA) 17.5 mcg/24 hrs (5 yrs) 19.5 mg IUD 1 Each by INTRAUTERINE route as directed. Knmpnmqiiyawhwg-Thpwzehqv-TR (BROMFED DM) 2-30-10 mg/5 mL syrup Take 5 mL by mouth four times daily as needed. pantoprazole DR (PROTONIX) 40 mg tablet Take 1 tablet by mouth once daily. 30 minutes before meal. (Patient not taking: Reported on 11/05/2022) polyethylene glycol 3350 (MIRALAX) 17 gram/dose powder Take 17 g by mouth once daily. Dissolve dose in 4 - 8 ounces of liquid and take as directed. (Patient not taking: Reported on 11/05/2022) Lactobacillus acidophilus (PROBIOTIC ORAL) Take by mouth. (Patient not taking: Reported on 11/05/2022) wheat dextrin (BENEFIBER CLEAR SF, DEXTRIN, ORAL) Take by mouth. (Patient not taking: Reported on 11/05/2022) MULTIVITAMIN ORAL Take by mouth. (Patient not taking: Reported on 11/05/2022) Sxzgs-2-QNR-EPA-Fish Oil 1,000 mg (120 mg-180 mg) cap Take 2 g by mouth twice daily. (Patient not taking: Reported on 11/05/2022) Ascorbic Acid 1,000 mg tablet Take 1,000 mg by mouth once daily. (Patient not taking: Reported on 11/05/2022) PURE L-THREONINE ORAL Take by mouth. (Patient not taking: Reported on 11/05/2022) No current facility-administered medications for this visit. Allergies As of Date: 12/09/2022 Allergen Noted Reaction DUST MITES 01/22/2021 Unknown Fully Assessed 11/18/2022 EXAMINATION: There is no concerning cervical, supraclavicular, or axillary lymphadenopathy. She has bilateral fibrocystic changes. On the left are no dominant masses, skin changes or nipple discharge. On the Right there is dominant fullness, fibrocysytic changes, and tenderness to palpation around 5 o'clock position next to areola. No skin changes or nipple discharge. ASSESSMENT/PLAN: 1. Mastalgia - ICD9: 611.71, ICD10: N64.4 - ABBY DIAGNOSTIC BILATERAL - US BREAST LTD RIGHT Will follow up with patient after imaging Love Segovia APRN.CNM documented in this encounter [facility] 11-18-2022 Note HNO ID: [id number] Author: Gabby Manzano APRN.CNP Service: ? Author Type: Nurse Practitioner Type: Progress Notes Filed: 11/18/2022 12:33 PM Note Text: Subjective Conjunctivitis Associated symptoms include congestion, cough, eye discharge and eye redness. Pertinent negatives include no fever, no double vision, no photophobia, no ear pain, no sore throat and no eye pain. Ric Mcclellan is a 22 year old female who presents with right eye redness and drainage. This started last night. When it began she had itching and burning, but that has improved. She has not had any visual changes. She was recently exposed to pink eye in a friend. She has not used any medication for this at home. She also notes ongoing sinus congestion and cough. Was treated for an ear infection on 11/05 with amoxicillin- just finished this course recently. She has not had a fever. Review of Systems Constitutional: Negative for chills and fever. HENT: Positive for congestion. Negative for ear pain and sore throat. Eyes: Positive for discharge and redness. Negative for blurred vision, double vision, photophobia and pain. Respiratory: Positive for cough. Negative for shortness of breath. Musculoskeletal: Negative. BP 102/70 Pulse 70 Temp 36.4 ?C (97.6 ?F) Resp 18 Wt 61.5 kg (135 lb 9.6 oz) LMP 01/22/2021 SpO2 99% BMI 22.57 kg/m? PAST MEDICAL HISTORY Diagnosis Date Encounter for insertion of intrauterine contraceptive device (IUD) 06/28/2020 Migraines PMH - PAST MEDICAL HISTORY OF 2006 normal color vision PMH - PAST MEDICAL HISTORY OF wears glasses - Dr Rothman Right ovarian cyst 02/21/2018 multiple right ovarians cysts on CT in ER at [facility] PAST SURGICAL HISTORY Procedure Laterality Date EGD 02/26/2021 KYLEENA IUD 06/28/2020 Placed in office NONE ALLERGIES Dust Mites MEDICATIONS levonorgestrel (KYLEENA) 17.5 mcg/24 hrs (5 yrs) 19.5 mg IUD 1 Each by INTRAUTERINE route as directed. Kgwbvtgfxkzfcmt-Qmiicaxgs-GK (BROMFED DM) 2-30-10 mg/5 mL syrup Take 5 mL by mouth four times daily as needed. trimethoprim-polymyxin (POLYTRIM) 10,000 unit- 1 mg/mL ophthalmic solution Use 1 Drop in the right eye four times daily for [address] (PROTONIX) 40 mg tablet Take 1 tablet by mouth once daily. 30 minutes before meal. (Patient not taking: Reported on 11/05/2022) polyethylene glycol 3350 (MIRALAX) 17 gram/dose powder Take 17 g by mouth once daily. Dissolve dose in 4 - 8 ounces of liquid and take as directed. (Patient not taking: Reported on 11/05/2022) Lactobacillus acidophilus (PROBIOTIC ORAL) Take by mouth. (Patient not taking: Reported on 11/05/2022) wheat dextrin (BENEFIBER CLEAR SF, DEXTRIN, ORAL) Take by mouth. (Patient not taking: Reported on 11/05/2022) MULTIVITAMIN ORAL Take by mouth. (Patient not taking: Reported on 11/05/2022) Yhwcg-8-CDX-EPA-Fish Oil 1,000 mg (120 mg-180 mg) cap Take 2 g by mouth twice daily. (Patient not taking: Reported on 11/05/2022) Ascorbic Acid 1,000 mg tablet Take 1,000 mg by mouth once daily. (Patient not taking: Reported on 11/05/2022) PURE L-THREONINE ORAL Take by mouth. (Patient not taking: Reported on 11/05/2022) FAMILY HISTORY Problem Relation Age of Onset Prostate Cancer Maternal Grandfather Cancer Paternal Grandmother breast cancer Breast Cancer Paternal Grandmother aunt Colon Cancer No Family History Social History Tobacco Use Smoking status: Never Smokeless tobacco: Never Vaping Use Vaping Use: Never used Substance Use Topics Alcohol use: No Drug use: No Objective Physical Exam Vitals and nursing note reviewed. Constitutional: Appearance: Normal appearance. HENT: Right Ear: Tympanic membrane, ear canal and external ear normal. Left Ear: Tympanic membrane, ear canal and external ear normal. Nose: Congestion present. Mouth/Throat: Mouth: Mucous membranes are moist. Pharynx: Oropharynx is clear. Uvula midline. No oropharyngeal exudate or posterior oropharyngeal erythema. Eyes: General: Lids are normal. Right eye: Discharge present. Left eye: No discharge. Conjunctiva/sclera: Right eye: Right conjunctiva is injected. No chemosis, exudate or hemorrhage. Left eye: Left conjunctiva is not injected. No chemosis, exudate or hemorrhage. Cardiovascular: Rate and Rhythm: Normal rate and regular rhythm. Heart sounds: Normal heart sounds. Pulmonary: Effort: Pulmonary effort is normal. No respiratory distress. Breath sounds: Normal breath sounds. No wheezing or rales. Musculoskeletal: Cervical back: Neck supple. Lymphadenopathy: Cervical: No cervical adenopathy. Skin: General: Skin is warm and dry. Findings: No erythema or rash. Neurological: Mental Status: She is alert. ASSESSMENT/PLAN: 1. URI with cough and congestion - ICD9: 465.9, ICD10: J06.9 (primary diagnosis) - Discussed viral etiology and rationale for treatment. - Symptomatic treatment with p (more content not included)... [facility] 11-18-2022 History of Presen t illness Narrative Subjective Conjunctivitis Associated symptoms include congestion, cough, eye discharge and eye redness. Pertinent negatives include no fever, no double vision, no photophobia, no ear pain, no sore throat and no eye pain. Ric Mcclellan is a 22 year old female who presents with right eye redness and drainage. This started last night. When it began she had itching and burning, but that has improved. She has not had any visual changes. She was recently exposed to pink eye in a friend. She has not used any medication for this at home. She also notes ongoing sinus congestion and cough. Was treated for an ear infection on 11/05 with amoxicillin- just finished this course recently. She has not had a fever. Review of Systems Constitutional: Negative for chills and fever. HENT: Positive for congestion. Negative for ear pain and sore throat. Eyes: Positive for discharge and redness. Negative for blurred vision, double vision, photophobia and pain. Respiratory: Positive for cough. Negative for shortness of breath. Musculoskeletal: Negative. BP 102/70 Pulse 70 Temp 36.4 C (97.6 F) Resp 18 Wt 61.5 kg (135 lb 9.6 oz) LMP 01/22/2021 SpO2 99% BMI 22.57 kg/m PAST MEDICAL HISTORY Diagnosis Date Encounter for insertion of intrauterine contraceptive device (IUD) 06/28/2020 Migraines PMH - PAST MEDICAL HISTORY OF 2006 normal color vision PMH - PAST MEDICAL HISTORY OF wears glasses - Dr Rothman Right ovarian cyst 02/21/2018 multiple right ovarians cysts on CT in ER at [facility] PAST SURGICAL HISTORY Procedure Laterality Date EGD 02/26/2021 KYLEENA IUD 06/28/2020 Placed in office NONE ALLERGIES Dust Mites MEDICATIONS levonorgestrel (KYLEENA) 17.5 mcg/24 hrs (5 yrs) 19.5 mg IUD 1 Each by INTRAUTERINE route as directed. Sdhozuzswghhmuq-Qlktnwfme-HS (BROMFED DM) 2-30-10 mg/5 mL syrup Take 5 mL by mouth four times daily as needed. trimethoprim-polymyxin (POLYTRIM) 10,000 unit- 1 mg/mL ophthalmic solution Use 1 Drop in the right eye four times daily for [address] (PROTONIX) 40 mg tablet Take 1 tablet by mouth once daily. 30 minutes before meal. (Patient not taking: Reported on 11/05/2022) polyethylene glycol 3350 (MIRALAX) 17 gram/dose powder Take 17 g by mouth once daily. Dissolve dose in 4 - 8 ounces of liquid and take as directed. (Patient not taking: Reported on 11/05/2022) Lactobacillus acidophilus (PROBIOTIC ORAL) Take by mouth. (Patient not taking: Reported on 11/05/2022) wheat dextrin (BENEFIBER CLEAR SF, DEXTRIN, ORAL) Take by mouth. (Patient not taking: Reported on 11/05/2022) MULTIVITAMIN ORAL Take by mouth. (Patient not taking: Reported on 11/05/2022) Koczk-8-UTI-EPA-Fish Oil 1,000 mg (120 mg-180 mg) cap Take 2 g by mouth twice daily. (Patient not taking: Reported on 11/05/2022) Ascorbic Acid 1,000 mg tablet Take 1,000 mg by mouth once daily. (Patient not taking: Reported on 11/05/2022) PURE L-THREONINE ORAL Take by mouth. (Patient not taking: Reported on 11/05/2022) FAMILY HISTORY Problem Relation Age of Onset Prostate Cancer Maternal Grandfather Cancer Paternal Grandmother breast cancer Breast Cancer Paternal Grandmother aunt Colon Cancer No Family History Social History Tobacco Use Smoking status: Never Smokeless tobacco: Never Vaping Use Vaping Use: Never used Substance Use Topics Alcohol use: No Drug use: No Objective Physical Exam Vitals and nursing note reviewed. Constitutional: Appearance: Normal appearance. HENT: Right Ear: Tympanic membrane, ear canal and external ear normal. Left Ear: Tympanic membrane, ear canal and external ear normal. Nose: Congestion present. Mouth/Throat: Mouth: Mucous membranes are moist. Pharynx: Oropharynx is clear. Uvula midline. No oropharyngeal exudate or posterior oropharyngeal erythema. Eyes: General: Lids are normal. Right eye: Discharge present. Left eye: No discharge. Conjunctiva/sclera: Right eye: Right conjunctiva is injected. No chemosis, exudate or hemorrhage. Left eye: Left conjunctiva is not injected. No chemosis, exudate or hemorrhage. Cardiovascular: Rate and Rhythm: Normal rate and regular rhythm. Heart sounds: Normal heart sounds. Pulmonary: Effort: Pulmonary effort is normal. No respiratory distress. Breath sounds: Normal breath sounds. No wheezing or rales. Musculoskeletal: Cervical back: Neck supple. Lymphadenopathy: Cervical: No cervical adenopathy. Skin: General: Skin is warm and dry. Findings: No erythema or rash. Neurological: Mental Status: She is alert. ASSESSMENT/PLAN: 1. URI with cough and congestion - ICD9: 465.9, ICD10: J06.9 (primary diagnosis) - Discussed viral etiology and rationale for treatment. - Symptomatic treatment with prn analgesia - Supportive care with fluids and rest - BROMPHENIRAMINE-PSEUDOEPHEDRINE -DM 2 MG-30 MG-10 MG/5 ML ORAL SYRUP 2. Acute conjunctivitis of right eye, unspecified acute conjunctivitis type - ICD9: 372.00, ICD10: H10.31 - see medication orders - course and contagiousness issues discussed, including hand washing. - Instructed to call if high fever, development of periorbital redness or swelling, eye pain, visual changes, concerns or if symptoms persist. - POLYMYXIN B SULFATE 10,000 UNIT-TRIMETHOPRIM 1 MG/ML EYE DROPS - Follow-up with your PCP in 3-5 days if symptoms have not improved or sooner if symptoms worsen - Discussed red flags and need for immediate medical evaluation if any occur. - Discussed supportive care treatment with fluids, rest and analgesia. - Discussed expected course of illness Gabby Manzano APRN.CNP documented in this encounter [facility] 11-18-2022 Instructions Gabby Manzano APRN.CNP - 11/18/2022 12:26 PM EDT ASSESSMENT/PLAN: 1. URI with cough and congestion - ICD9: 465.9, ICD10: J06.9 (primary diagnosis) - Discussed viral etiology and rationale for treatment. - Symptomatic treatment with prn analgesia - Supportive care with fluids and rest - BROMPHENIRAMINE-PSEUDOEPHEDRINE -DM 2 MG-30 MG-10 MG/5 ML ORAL SYRUP 2. Acute conjunctivitis of right eye, unspecified acute conjunctivitis type - ICD9: 372.00, ICD10: H10.31 - see medication orders - course and contagiousness issues discussed, including hand washing. - Instructed to call if high fever, development of periorbital redness or swelling, eye pain, visual changes, concerns or if symptoms persist. - POLYMYXIN B SULFATE 10,000 UNIT-TRIMETHOPRIM 1 MG/ML EYE DROPS - Follow-up with your PCP in 3-5 days if symptoms have not improved or sooner if symptoms worsen - Discussed red flags and need for immediate medical evaluation if any occur. - Discussed supportive care treatment with fluids, rest and analgesia. - Discussed expected course of illness Gabby Manzano APRN.[employer] CONJUNCTIVITIS GENERAL INFORMATION: Conjunctivitis is also known as pink eye. It is an irritation of the underside of the eyelid and the white part of the eye. Conjunctivitis can be caused by infection, chemical irritation, or allergy. If infectious, it is very contagious. INSTRUCTIONS: The doctor has prescribed antibiotic drops or ointment. Use them as prescribed. Do not touch the dropper to the eye. Throw out the medication after completing treatment. If the doctor only prescribed the medication to be placed in one eye, and the other eye starts to bother you with the same symptoms, you may treat it in the same fashion. To ease discomfort, apply a warm or cool clean washcloth to your eye several times a day for 10 to 20 minutes. Gently wipe away discharge from the eyes with tissues. Wash your hands often with soap and use paper towels to dry them. Do not share towels, washcloths, or pillows. This could spread infection. Do not use eye make-up until the infection has resolved. Keep contact lenses out of eyes until the irritation is gone. Discard any eye make-up which you may have contaminated before the infection was diagnosed, and any eye make-up older than one year. Children should not return to school or daycare until the eye is no longer pink. Do not drive or operate machinery if your vision is blurred. Wear sunglasses if your eyes are sensitive to the light. CONTACT YOUR DOCTOR IF YOU OR YOUR CHILD NOTICE: *The eye is still pink 3 days after starting treatment with medicine. *Pain in the eye increases. *The redness is spreading. *Vision becomes blurred. *You have a temperature over 100.5 F (38 C). documented in this encounter [facility] 11-05-2022 Note HNO ID: [id number] Author: Geovanna Butler APRN.[employer]ITY Service: ? Author Type: Nurse Practitioner Type: Progress Notes Filed: 11/05/2022 10:25 AM Note Text: CC: Patient presents with: Head Congestion: Cough, R ear pain, PARKINSON x5 days HPI: Ric Mcclellan is a 22 year old female who presents to the office with complaint of head congestion, cough, nonproductive, and ear symptoms for 5 days. Symptoms are worsening Associated symptoms includes headache and ear pain. Denies fever, nausea, vomiting , and diarrhea. Treatments tried include OTC cold medicine with minor relief of symptoms. Sick contacts: unknown. History of asthma, frequent episodes of bronchitis, chronic bronchitis, bronchiectasis or COPD: No Smoker: No Seasonal/environmental allergies: No The ROS is otherwise negative. The patient's pmh, medications, allergies, and past visits are reviewed. PHYSICAL EXAM: BP 124/74 Pulse 111 Temp 37.6 ?C (99.6 ?F) Resp 18 Wt 60.9 kg (134 lb 3.2 oz) LMP 01/22/2021 SpO2 100% BMI 22.33 kg/m? General appearance: alert, cooperative, pleasant, in no acute distress Head: Normocephalic Eyes: EOM's intact, conjunctiva pink and moist, no icterus, sclera white, non-injected Ears: Right ear: External ear/canal- Normal, TM - erythematous, bulging. Left ear: External ear/canal- Normal, TM - clear with good landmarks Oropharynx:moist without lesions, No erythema, exudates or tonsillar hypertrophy. Heart: Negative. RRR without obvious murmur, gallop, or rubs. No ectopy. Lungs: clear to auscultation, without rales or wheeze, good air exchange PAST MEDICAL HISTORY Diagnosis Date Encounter for insertion of intrauterine contraceptive device (IUD) 06/28/2020 Migraines PMH - PAST MEDICAL HISTORY OF 2006 normal color vision PMH - PAST MEDICAL HISTORY OF wears glasses - Dr Rothman Right ovarian cyst 02/21/2018 multiple right ovarians cysts on CT in ER at [facility] PAST SURGICAL HISTORY Procedure Laterality Date EGD 02/26/2021 KYLEENA IUD 06/28/2020 Placed in office NONE ALLERGIES Dust Mites MEDICATIONS levonorgestrel (KYLEENA) 17.5 mcg/24 hrs (5 yrs) 19.5 mg IUD 1 Each by INTRAUTERINE route as directed. amoxicillin (AMOXIL) 875 mg tablet Take 1 tablet by mouth twice daily for [address] (PROTONIX) 40 mg tablet Take 1 tablet by mouth once daily. 30 minutes before meal. (Patient not taking: Reported on 11/05/2022) polyethylene glycol 3350 (MIRALAX) 17 gram/dose powder Take 17 g by mouth once daily. Dissolve dose in 4 - 8 ounces of liquid and take as directed. (Patient not taking: Reported on 11/05/2022) Lactobacillus acidophilus (PROBIOTIC ORAL) Take by mouth. (Patient not taking: Reported on 11/05/2022) wheat dextrin (BENEFIBER CLEAR SF, DEXTRIN, ORAL) Take by mouth. (Patient not taking: Reported on 11/05/2022) MULTIVITAMIN ORAL Take by mouth. (Patient not taking: Reported on 11/05/2022) Cpedq-2-JUD-EPA-Fish Oil 1,000 mg (120 mg-180 mg) cap Take 2 g by mouth twice daily. (Patient not taking: Reported on 11/05/2022) Ascorbic Acid 1,000 mg tablet Take 1,000 mg by mouth once daily. (Patient not taking: Reported on 11/05/2022) PURE L-THREONINE ORAL Take by mouth. (Patient not taking: Reported on 11/05/2022) FAMILY HISTORY Problem Relation Age of Onset Prostate Cancer Maternal Grandfather Cancer Paternal Grandmother breast cancer Breast Cancer Paternal Grandmother aunt Colon Cancer No Family History Social History Tobacco Use Smoking status: Never Smokeless tobacco: Never Vaping Use Vaping Use: Never used Substance Use Topics Alcohol use: No Drug use: No ASSESSMENT/PLAN: 1. Acute otitis media, right - ICD9: 382.9, ICD10: H66.91 - AMOXICILLIN 875 MG TABLET Prescription instructions reviewed with patient as applicable. Potential red flag symptoms discussed with the patient. Reviewed appropriate action plan to take if red flag symptoms occur. Patient agreeable to treatment plan. Geovanna Butler APRN.REYNALDO [facility] Diagnosis Mastalgia- Primary Mastodynia [facility] Diagnosis Acute cough- Primary [facility] Diagnostic Procedure Only (Routine) - Authorized Specialty Diagnoses / Procedures Referred By Emerald vazquez Referred To Contact [facility] Diagnoses Mastalgia Procedures US BREAST LTD RIGHT US BREAST UNI REAL TIME WITH IMAGE LIMITED Love Segovia APRN.CNM [address] [place] [address] [facility] [address] [place] [address] Referral ID Status Reason Start Date Expiration Date Visits Requested Visits Authorized [id number] Authorized Auto-Generat ed Referral 12/09/2022 01/08/2024 1 1 * Diagnostic Procedure Only (Routine) - Authorized Specialty Diagnoses / Procedures Referred By Emerald vazquez Referred To Contact [facility] Diagnoses Mastalgia Procedures ABBY DIAGNOSTIC BILATERAL DIAGNOSTIC MAMMOGRAPHY COMPUTER-AIDED DETCJ BI Love Segovia APRN.CNM [address] [place] [address] [facility] [address] [address] Referral ID Status Reason Start Date Expiration Date Visits Requested Visits Authorized [id number] Authorized Auto-Generat ed Referral 12/09/2022 01/08/2024 1 1 [facility] Summary Purpose Family History No Family History Records FoundNo Family History Records FoundNo Family History Records Found Advance Directives No Advanced Directives Records FoundNo Advanced Directives Records FoundNo Advanced Directives Records Found Additional Source Comments INFORMATION SOURCE (unrecogn ized section and content) DATE CREATED AUTHOR AUTHOR'S ORGANIZ ATION 07/30/2021 [facility] DATE CREATED AUTHOR AUTHOR'S ORGANIZ ATION 01/15/2023 [facility] Source Comments (unrecognize d section and content) In the event this informatio n is protected by the Federal Confidentiality of Alcohol and Drug Abuse Patient Records regulations: The Federal rules restrict any use of the information to criminally investigate or prosecute any alcohol or drug abuse patient.[facility] the event this information is protected by the Federal Confidentiality of Alcohol and Drug Abuse Patient Records regulations: The Federal rules restrict any use of the information to criminally investigate or prosecute any alcohol or drug abuse patient.[facility] the event this information is protected by the Federal Confidentiality of Alcohol and Drug Abuse Patient Records regulations: The Federal rules restrict any use of the information to criminally investigate or prosecute any alcohol or drug abuse patient.[facility] Reason for Visit (unrecogniz ed section and content) Reason Comments Breast Problem Reason Comments Cough Pt reported cough, x 2 wks. Care Teams (unrecognized sec tion and content) Apiculture Teacher Relationship Specialty Start Date End Date Michelle Barber MD [address] [place] [address] PCP - General 05/08/02 FOR RECORDS PERTAINING TO PATIENTS WHO ARE OR HAVE BEEN ENROLLED IN A CHEMICAL DEPENDENCY/SUBSTANCEABUSE PROGRAM, SOME INFORMATION MAY BE OMITTED. This clinical summary was aggregated from multiple sources. Caution should be exercised in using it in the provision of clinical care. This summary normalizes information from multiple sources, and as a consequence, information in this document may materially change the coding, format and clinical context of patient data. In addition, data may be omitted in some cases. CLINICAL DECISIONS SHOULD BE BASED ON THE PRIMARY CLINICAL RECORDS. [facility] [facility]. provides no warranty or guarantee of the accuracy or completeness of information in this document.
--- NOTE | 2023-08-11 06:45 | MRI_ITS ---
STUDY: MRI THORACIC SPINE WITHOUT CONTRAST REASON FOR EXAM: Female, 22 years old. chronic thoracic back pain TECHNIQUE: Standardized fat and water weighted pulse sequences were obtained in the sagittal and axial planes. Mild motion artifact is present. COMPARISON: Chest x-ray dated April 13, 2023 FINDINGS: Normal kyphosis of the thoracic spine. There is no substantial scoliosis. No marrow edema or fracture or compression deformities are present. T1-2, T2-3, T3-4, T4-5, T5-6, T6-7, T7-8, T8-9, T9-10, T10-11, T11-12: Normal endplates. Normal disc hydration, heights and morphology of the corresponding intervertebral discs. Normal central canal and intervertebral neural foramina at the corresponding levels.There is no disc herniation or large protrusions or extrusions or demonstrated cord compression Normal thoracic cord. No spinal cord lesions or or demyelinating plaques are present. Linear increased signal in the cord at the T8-T10 levels seen on the T2 sequence image / series 7 is likely artifactual rather than true syrinx formation given CSF flow artifact is seen posterior to this region and additional artifact is seen through the osseous structures and spinal cord at this level. Also this is linear signal is not reproduced on the STIR sequence, indicating it is artifactual. The spinal cord is otherwise normal. No malignant appearing lesions are seen. No nerve root lesions are present. Normal conus medullaris that terminates at the . The soft tissue structures are unremarkable. MRI/Spine Thoracic (Routine) IMPRESSION: Essentially negative unenhanced MRI examination of the thoracic spine. Electronically Signed: Juan Moseley MD at 11:35 EST ,
== END | disposition home or self-care (01) ==
LOC: MRI 06:34
PROVIDERS: PCP Internal Medicine; Referring Provider Internal Medicine; Visit Provider Internal Medicine
DX: M54.6 Pain in thoracic spine (principal); G89.29 Other chronic pain
CPT/HCPCS: 72146

== ENCOUNTER → 2023-09-06 | Outpatient (CLI) | payer MEDICAID, SELFPAY ==
--- OUTSIDE RECORDS SUMMARY | 2023-09-06 18:10 | XMS RPT_ITS | CCD ---
Author Name Unknown Address [address] [place] [address] [facility] [address] [place] [address] Organization [facility] Care Team Providers Care Promotions Assistant Name Role Phone PROVIDER, UNKNOWN Attending Unavailable PROVIDER, UNKNOWN Admitting Unavailable PATIENT, SELF Referring Unavailable Michelle Barber MD Primary Care Provider Unavailable Primary Care Provider UnavailMICHELLE Hahn Primary Care Unavailable MICHELLE BARBER Primary Care Unavailable MICHELLE BARBER Primary Care Unavailable LOVE SEGOVIA Attending Unavailable RUSTY PATEL Attending Unavailable RUSTY PATEL Referring Unavailable Allergies Allergy Classification Reported Allergen(s) Allergy Type Date of Onset Reaction(s) Facility (1 source) House dust mite; Translations: [DUST MITE EXTRACT] Propensity to adverse reactions to drug (disorder) 1 [facility] (2 sources) House dust mite; Translations: [DUST MITES] Propensity to adverse reactions (disorder) 1 [facility] Rep[facility] Medications Current Medications Medication Drug Class(es) [...] Problem Date Documented Date Episodic/Chronic Anxiety disorders (4 sources) Mixed anxiety and depressive disorder; Translations: [Other specified anxiety disorders] Onset: 10-01-2020 10-01-2020 Chronic Inflammation; infection of eye (except that caused by tuberculosis or sexually transmitteddisease) (1 source) Acute conjunctivitis of right eye; Translations: [Unspecified acute conjunctivitis, right eye] Episodic Nonmalignant breast conditions (2 sources) Pain of breast; Translations: [Mastodynia] Onset: 12-09-2022 Episodic Other circulatory disease (4 sources) Raynaud's disease; Translations: [Raynaud's syndrome without gangrene] Onset: 10-01-2020 10-01-2020 Chronic Other lower respiratory disease (1 source) Cough; Translations: [Acute cough] Episodic Other nervous system disorders (1 source) Other chronic pain; Translations: [Chronic left-sided thoracic back pain] Onset: 10-09-2020 Chronic Other non-traumatic joint disorders (1 source) Multiple joint pain; Translations: [Pain in unspecified joint] 08-23-2023 Episodic Other non-traumatic joint disorders (1 source) Pain in unspecified joint; Translations: [Polyarthralgia] Onset: 08-23-2023 Episodic Other upper respiratory disease (4 sources) Allergic rhinitis due to house dust mite; Translations: [Other allergic rhinitis] Onset: 01-22-2021 01-22-2021 Chronic Other upper respiratory infections (1 source) Upper respiratory infection; Translations: [Acute upper respiratory infection, unspecified] Episodic Past or Other Problems Problem Classification Problem Date Documented Da te Episodic/Chronic Spondylosis; intervertebral disc disorders; other back problems (6 sources) Chronic thoracic back pain; Translations: [Pain in thoracic spine] Onset: 10-09-2020 10-09-2020 Episodic Results Test Name Value Interpretation Reference Range Facil ity Vital Signs Date Time Vital Sign Value Performing Clinician Bailey bradley 08-23-2023 09:43-0500 Body height 165.1 cm Rusty Patel DO Work Phone: [facility] 08-23-2023 09:43-0500 Body weight 58.51 kg Rusty Patel DO Work Phone: [facility] 08-23-2023 09:43-0500 Respiratory rate 16 /min Rusty Patel DO Work Phone: [facility] 01-14-2023 19:41-0400 Body temperature 97.59 [degF] Mark Rodriguez MD Work Phone: [facility] 01-14-2023 19:41-0400 Body weight 60.06 kg Mark Rodriguez MD Work Phone: [facility] 01-14-2023 19:41-0400 Diastolic blood pressure 66 mm[Hg] Mark Rodriguez MD Work Phone: [facility] 01-14-2023 19:41-0400 Heart rate 132 /min Mark Rodriguez MD Work Phone: [facility] 01-14-2023 19:41-0400 Respiratory rate 18 /min Mark Rodriguez MD Work Phone: [facility] 01-14-2023 19:41-0400 Systolic blood pressure 110 mm[Hg] Mark Rodriguez MD Work Phone: [facility] 12-09-2022 11:14-0400 Body weight 60.33 kg Love Plotts TAX INTERN.CNM Work Phone: [facility] 12-09-2022 11:14-0400 Diastolic blood pressure 62 mm[Hg] Love Plotts TAX INTERN.CNM Work Phone: [facility] 12-09-2022 11:14-0400 Systolic blood pressure 100 mm[Hg] Love Plotts TAX INTERN.CNM Work Phone: [facility] 11-18-2022 12:15-0400 Body temperature 97.59 [degF] Gabby Pramarvin-Wood TAX INTERN.RETURNER Work Phone: [facility] 11-18-2022 12:15-0400 Body weight 61.51 kg Gabby Praisler-Wood TAX INTERN.RETURNER Work Phone: [facility] 11-18-2022 12:15-0400 Diastolic blood pressure 70 mm[Hg] Gabby Praisler-Wood TAX INTERN.RETURNER Work Phone: [facility] 11-18-2022 12:15-0400 Heart rate 70 /min Gabby Manzano APRN.RETURNER Work Phone: [facility] 11-18-2022 12:15-0400 Respiratory rate 18 /min Gabby Manzano APRN.RETURNER Work Phone: [facility] 11-18-2022 12:15-0400 SaO2% (BldA) [Mass fraction] 99 % Gabby Manzano APRN.RETURNER Work Phone: [facility] 11-18-2022 12:15-0400 Systolic blood pressure 102 mm[Hg] Gabby Manzano APRN.RETURNER Work Phone: [facility] Encounters Encounter Date Encounter Type Care Provider Facility Start: 08-23-2023 End: 08-24-2023 ambulatory RUSTY PATEL Facility:[facility] Start: 08-23-2023 End: 08-23-2023 ambulatory RUSTY PATEL Facility:[facility] Start: 08-23-2023 End: 08-23-2023 Patient encounter procedure Rusty Patel DO Work Phone: [facility] Plan of Treatment Date Care Activity Detail Author Start: 08-26-2026 Urine microalbumin profile [facility] Start: 03-03-2024 PAP TESTING PAP TESTING [facility] Start: 03-03-2024 Screening for malign ant neoplasm of cervix Pap Testing [facility] Start: 08-23-2023 End: 11-22-2023 HLA-B27 PCR [facility] Work Phone: Immunizations Immunization Date Immunization Notes Care Provider Fa gail 08-26-2016 tetanus toxoid, redu joseph diphtheria toxoid, and acellular pertussis vaccine, adsorbed Gabby Manzano APRN.RETURNER Work Phone: [facility] 12-23-2015 meningococcal polysaccharide (groups A, C, Y and W-135) diphtheria toxoid conjugate vaccine (MCV4P) Gabby Manzano APRN.RETURNER Work Phone: [facility] 02-12-2012 human papilloma viru s vaccine, quadrivalent Gabby Praisler-Wood TAX INTERN.RETURNER Work Phone: [facility] Work Phone: 02-12-2012 varicella virus vaccine Harleen y Praisler-Wood TAX INTERN.RETURNER Work Phone: [facility] Work Phone: 05-14-2011 influenza virus vacc ine, live, attenuated, for intranasal use Gabby Praisler-Wood TAX INTERN.RETURNER Work Phone: [facility] Work Phone: 05-14-2011 influenza virus vacc ine, unspecified formulation Rusty Patel Work Phone: [facility] 12-12-2010 human papilloma viru s vaccine, quadrivalent Gabby Praisler-Wood TAX INTERN.[facility] Work Phone: [facility] 12-12-2010 Meningococcal, MCV4, unspecified conjugate formulation(groups A, C, Y and W-135) Gabby Hurdisler-Wood TAX INTERN.RETURNER Work Phone: [facility] 12-12-2010 tetanus toxoid, redu joseph diphtheria toxoid, and acellular pertussis vaccine, adsorbed Gabby Praisler-Wood TAX INTERN.RETURNER Work Phone: [facility] 05-14-2010 human papilloma viru s vaccine, quadrivalent Gabby Hurdisler-Wood TAX INTERN.RETURNER Work Phone: [facility] 04-26-2010 influenza virus vacc ine, live, attenuated, for intranasal use Gabby Praisler-Wood TAX INTERN.RETURNER Work Phone: [facility] Work Phone: 04-13-2009 influenza virus vacc ine, live, attenuated, for intranasal use Gabby Praisler-Wood TAX INTERN.RETURNER Work Phone: [facility] Work Phone: 05-02-2008 influenza virus vacc ine, live, attenuated, for intranasal use Gabby Praisler-Wood TAX INTERN.[facility] Work Phone: [facility] Work Phone: 05-16-2007 influenza virus vacc ine, unspecified formulation Gabby Manzano TAX INTERN.RETURNER Work Phone: [facility] Work Phone: 05-11-2006 influenza virus vacc ine, unspecified formulation Gabby Manzano TAX INTERN.[facility] Work Phone: [facility] Work Phone: 05-12-2005 influenza virus vacc ine, unspecified formulation Gabby Lau-Ricardo TAX INTERN.[facility] Work Phone: [facility] Work Phone: 10-30-2004 diphtheria, tetanus toxoids and acellular pertussis vaccine Gabby Manzano TAX INTERN.[facility] Work Phone: [facility] Work Phone: 10-30-2004 measles, mumps and rubella virus vaccine Gabby Manzano TAX INTERN.[facility] Work Phone: [facility] Work Phone: 10-30-2004 poliovirus vaccine, inactivated Gabby Manzano TAX INTERN.[facility] Work Phone: [facility] Work Phone: 06-16-2003 influenza virus vacc ine, unspecified formulation Gabby Manzano TAX INTERN.[facility] Work Phone: [facility] Work Phone: 06-13-2002 influenza virus vacc ine, unspecified formulation Gabby Lau-Ricardo TAX INTERN.[facility] Work Phone: [facility] Work Phone: 05-13-2002 influenza virus vacc ine, unspecified formulation Gabby Lau-Ricardo TAX INTERN.RETURNER Work Phone: [facility] Work Phone: 03-16-2002 pneumococcal conjuga te vaccine, 7 valent Gabby Manzano TAX INTERN.RETURNER Work Phone: [facility] Work Phone: 07-15-2001 hepatitis B vaccine, pediatric or pediatric/adolescent dosage Gabby Manzano TAX INTERN.RETURNER Work Phone: [facility] Work Phone: 07-15-2001 poliovirus vaccine, inactivated Gabby Manzano TAX INTERN.[facility] Work Phone: [facility] Work Phone: 02-07-2001 diphtheria, tetanus toxoids and acellular pertussis vaccine Gabby Manzano TAX INTERN.[facility] Work Phone: [facility] Work Phone: 02-07-2001 haemophilus influenz ae type b vaccine, HbOC conjugate Gabby Manzano TAX INTERN.[facility] Work Phone: [facility] Work Phone: 2000 measles, mumps and rubella virus vaccine Gabby Manzano TAX INTERN.[facility] Work Phone: [facility] Work Phone: 2000 pneumococcal conjuga te vaccine, 7 valent Gabby Manzano TAX INTERN.[facility] Work Phone: [facility] Work Phone: 2000 varicella virus vaccine Harleen Manzano TAX INTERN.[facility] Work Phone: [facility] Work Phone: 08-03-2000 hepatitis B vaccine, pediatric or pediatric/adolescent dosage Gabby Manzano TAX INTERN.RETURNER Work Phone: [facility] Work Phone: 08-03-2000 pneumococcal conjuga te vaccine, 7 valent Gabby Manzano TAX INTERN.RETURNER Work Phone: [facility] Work Phone: 04-27-2000 diphtheria, tetanus toxoids and acellular pertussis vaccine Gabby Manzano TAX INTERN.RETURNER Work Phone: [facility] Work Phone: 04-27-2000 haemophilus influenz ae type b vaccine, HbOC conjugate Gabby Praisler-Wood TAX INTERN.RETURNER Work Phone: [facility] Work Phone: 04-27-2000 hepatitis B vaccine, pediatric or pediatric/adolescent dosage Gabby Praisler-Wood TAX INTERN.[facility] Work Phone: [facility] Work Phone: 04-27-2000 pneumococcal conjuga te vaccine, 7 valent Gabby Praisler-Wood TAX INTERN.[facility] Work Phone: [facility] Work Phone: 03-16-2000 diphtheria, tetanus toxoids and acellular pertussis vaccine Gabby Praisler-Wood TAX INTERN.[facility] Work Phone: [facility] Work Phone: 03-16-2000 haemophilus influenz ae type b vaccine, HbOC conjugate Gabby Praisler-Wood TAX INTERN.RETURNER Work Phone: [facility] Work Phone: 03-16-2000 poliovirus vaccine, inactivated Gabby Praisler-Wood TAX INTERN.[facility] Work Phone: [facility] Work Phone: 1999 diphtheria, tetanus toxoids and acellular pertussis vaccine Gabby Praisler-Wood TAX INTERN.RETURNER Work Phone: [facility] Work Phone: 1999 haemophilus influenz ae type b vaccine, HbOC conjugate Gabby Praisler-Wood TAX INTERN.RETURNER Work Phone: [facility] Work Phone: 1999 poliovirus vaccine, inactivated Gabby Praisler-Wood TAX INTERN.RETURNER Work Phone: [facility] Work Phone: Payers Date Payer Category Payer Medicaid UHC MEDICAID [employer] [place] [id number] 2022-Present [phone] [address] [place] [address] Medicaid [id number] 2022 Medicaid [id number] 2017 Medicaid [id number] 1999 Unknown [id number] Social History Date Type Detail Facility Start: 11-05-2022 Tobacco smoking stat [facility] Never smoked tobacco [facility] Start: 11-05-2022 Tobacco use and exposure Smoke less tobacco non-user [facility] Start: 11-18-2022 End: 08-23-2023 Alcohol intake Current non-drinker of alcohol (finding) [facility] Start: 2000 Sex Assigned At Female C [facility] Start: 12-09-2022 End: 08-23-2023 History of Social function [facility] Start: 12-09-2022 End: 08-23-2023 Tobacco use panel [facility] PHQ2 Score 0 [facility] Start: 01-21-2021 Gender identity Identifies as female gender (finding) [facility] Start: 01-21-2021 Sexual orientation Heterosexual (fin ding) [facility] Clinical Notes 11-05-2022 to 08-23-2023 Rusty Patel DO - 08/23/2023 9:49 AM Anoop Rodriguez MD - 01/14/2023 7:44 PM Ameya Segovia APRN.CNM - 12/09/2022 11:10 AM Saadia Silva APRN.RETURNER - 11/18/2022 12:27 PM EDT Note Date & Type Note Facility 08-23-2023 Note HNO ID: [id number] Author: RUSTY PATEL DO Service: ? Author Type: Physician Type: Progress Notes Filed: 08/23/2023 13:40 Note Text: HPI: Ric Mcclellan is a 22 year old female who presents today with chronic thoracic back pain. 6 visits of PT last year at a [facility] didn't help. Had 2 physical therapists in past, 2 chiropractors. Pain into left thoracic spine area near rhomboids. No injury. Left thigh pain for 3 years as well but not sure if related. 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 Worse with standing or walking long periods. 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 MRI last month was normal ([place]). Further discussion does know that there is a family history of autoimmune issues putting rheumatoid arthritis. PAST MEDICAL HISTORY Diagnosis Date Encounter for insertion of intrauterine contraceptive device (IUD) 06/28/2020 Migraines PMH - PAST MEDICAL HISTORY OF 2006 normal color vision PMH - PAST MEDICAL HISTORY OF wears glasses - Dr Rothman Right ovarian cyst 02/21/2018 multiple right ovarians cysts on CT in ER at [facility] PAST SURGICAL HISTORY Procedure Laterality Date EGD 02/26/2021 KYLEENA IUD 06/28/2020 Placed in office Social History Tobacco Use Smoking status: Never Smokeless tobacco: Never Vaping Use Vaping Use: Never used Substance Use Topics Alcohol use: No Drug use: No Current Outpatient Medications Medication Sig buPROPion SR (WELLBUTRIN SR) 150 mg 12 hr tablet montelukast (SINGULAIR) 10 mg tablet cyclobenzaprine (FLEXERIL) 5 mg tablet levonorgestrel (KYLEENA) 17.5 mcg/24 hrs (5 yrs) 19.5 mg IUD 1 Each by INTRAUTERINE route as directed. No current facility-administered medications for this visit. ALLERGIES Allergen Reactions Dust Mites Unknown Verified by skin testing Resp 16 Ht 5' 5 (1.65m) Wt 129 lb (58.5kg) LMP 01/10/2023 BMI 21.47 kg/(m2). EXAM: Examination of the thoracic spine reveals no obvious scoliosis or deformity. There is tenderness of the left-sided paraspinal muscles in the T3-T10 area most notably in the T5 area. Minimal tenderness of the spinous processes. Tolerates extension well with mild pain. Flexion is also tolerated well with only mild pain. Rotational movements produces a sharper pain. No radicular symptoms in the legs with testing today including straight leg and slump testing. Normal sensation, reflexes, and pulses ASSESSMENT: (M54.6, G89.29) Chronic left-sided thoracic back pain (primary encounter diagnosis) (M25.50) Polyarthralgia PLAN: Ric has chronic thoracic back pain issues. MRI imaging has ruled out major abnormalities or arthritic issues. She lateralizes more to the left side. There does not seem to be an obvious scapular snapping or dysfunction issue but I do worry she may have over tight rhomboids, trapezius, or levator scapulae muscles that play a role. She may look into physical therapy for this again but this time look into possible needling treatments. We discussed that our [facility] facilities often will do such treatments. The [facility] therapy may be a little closer for her. We discussed posture can play a major role. We discussed looking into devices or bras that may encourage proper posture by pulling the shoulders back. She has considered breast reduction in the past and may look into this again as a possible way to reduce stress to her upper back. With this being a chronic issue and conservative care including chiropractic treatments and physical therapy not being helpful in the past, I did order blood work looking for autoimmune issues. Sed rate, CRP, rheumatoid factor, and HLA-B27 all ordered. HELENA blood testing in the past was normal. Will call her of these results. I am happy to see her back anytime to further discuss these issues should her new therapy issues to be unsuccessful. Rusty Patel, DO [facility] 08-23-2023 History of Presen t illness Narrative HPI: Ric Mcclellan is a 22 year old female who presents today with chronic thoracic back pain. 6 visits of PT last year at a [place] facility didn't help. Had 2 physical therapists in past, 2 chiropractors. Pain into left thoracic spine area near rhomboids. No injury. Left thigh pain for 3 years as well but not sure if related. 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 Worse with standing or walking long periods. 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 MRI last month was normal ([place]). Further discussion does know that there is a family history of autoimmune issues putting rheumatoid arthritis. PAST MEDICAL HISTORY Diagnosis Date Encounter for insertion of intrauterine contraceptive device (IUD) 06/28/2020 Migraines PMH - PAST MEDICAL HISTORY OF 2006 normal color vision PMH - PAST MEDICAL HISTORY OF wears glasses - Dr Rothman Right ovarian cyst 02/21/2018 multiple right ovarians cysts on CT in ER at [facility] PAST SURGICAL HISTORY Procedure Laterality Date EGD 02/26/2021 KYLEENA IUD 06/28/2020 Placed in office Social History Tobacco Use Smoking status: Never Smokeless tobacco: Never Vaping Use Vaping Use: Never used Substance Use Topics Alcohol use: No Drug use: No Current Outpatient Medications Medication Sig buPROPion SR (WELLBUTRIN SR) 150 mg 12 hr tablet montelukast (SINGULAIR) 10 mg tablet cyclobenzaprine (FLEXERIL) 5 mg tablet levonorgestrel (KYLEENA) 17.5 mcg/24 hrs (5 yrs) 19.5 mg IUD 1 Each by INTRAUTERINE route as directed. No current facility-administered medications for this visit. ALLERGIES Allergen Reactions Dust Mites Unknown Verified by skin testing Resp 16 Ht 5' 5 (1.65m) Wt 129 lb (58.5kg) LMP 01/10/2023 BMI 21.47 kg/(m^2). EXAM: Examination of the thoracic spine reveals no obvious scoliosis or deformity. There is tenderness of the left-sided paraspinal muscles in the T3-T10 area most notably in the T5 area. Minimal tenderness of the spinous processes. Tolerates extension well with mild pain. Flexion is also tolerated well with only mild pain. Rotational movements produces a sharper pain. No radicular symptoms in the legs with testing today including straight leg and slump testing. Normal sensation, reflexes, and pulses ASSESSMENT: (M54.6, G89.29) Chronic left-sided thoracic back pain (primary encounter diagnosis) (M25.50) Polyarthralgia PLAN: Ric has chronic thoracic back pain issues. MRI imaging has ruled out major abnormalities or arthritic issues. She lateralizes more to the left side. There does not seem to be an obvious scapular snapping or dysfunction issue but I do worry she may have over tight rhomboids, trapezius, or levator scapulae muscles that play a role. She may look into physical therapy for this again but this time look into possible needling treatments. We discussed that our [facility] facilities often will do such treatments. The [place] [facility] therapy may be a little closer for her. We discussed posture can play a major role. We discussed looking into devices or bras that may encourage proper posture by pulling the shoulders back. She has considered breast reduction in the past and may look into this again as a possible way to reduce stress to her upper back. With this being a chronic issue and conservative care including chiropractic treatments and physical therapy not being helpful in the past, I did order blood work looking for autoimmune issues. Sed rate, CRP, rheumatoid factor, and HLA-B27 all ordered. HELENA blood testing in the past was normal. Will call her of these results. I am happy to see her back anytime to further discuss these issues should her new therapy issues to be unsuccessful. Rusty Patel DO documented in this encounter [facility] 01-14-2023 Note HNO ID: [id number] Author: Mark Rodriguez MD Service: ? Author [...] or late onset fever. Mark Rodriguez MD [facility] 01-14-2023 History of Presen t illness [...] Mark Rodriguez MD documented in this encounter [facility] 12-09-2022 Note HNO ID: [id number] Author: Love Segovia APRN.CNM Service: ? Author Type: Broadcast Operations Manager Type: Progress Notes Filed: 12/09/2022 12:18 PM Note Text: Power Lineman offered: Patient declines. BREAST PAIN HISTORY: This is a 22 year old female Presents with mastalgia bilaterally Tenderness Yes, Change in sizeYes, increase - Right breast Any history breast mass no but history of breast pain bilaterally Caffeine use No Last [id number] normal Contraception- Kyleena Any previous breast surgery [...] ovarians cysts on CT in ER at [facility] PAST SURGICAL HISTORY Procedure Laterality Date EGD [...] 1 Each by INTRAUTERINE route as directed. Cdwsvewzdwrfefs-Juvhtdkay-TP (BROMFED DM) 2-30-10 mg/5 mL syrup Take [...] mouth. (Patient not taking: Reported on 11/05/2022) Wpsdp-0-ZDK-EPA-Fish Oil 1,000 mg (120 mg-180 mg) cap [...] up with patient after imaging Love Segovia APRN.[facility] 12-09-2022 History of Presen t illness Narrative Power Lineman offered: Patient declines. BREAST PAIN HISTORY: This is a 22 year old female Presents with mastalgia bilaterally Tenderness Yes, Change in sizeYes, increase - Right breast Any history breast mass no but history of breast pain bilaterally Caffeine use No Last [id number] normal Contraception- Kyleena Any previous breast surgery [...] ovarians cysts on CT in ER at [facility] PAST SURGICAL HISTORY Procedure Laterality Date EGD [...] 1 Each by INTRAUTERINE route as directed. Qwzqgadtqsledqn-Fvmlbpdfh-TD (BROMFED DM) 2-30-10 mg/5 mL syrup Take [...] mouth. (Patient not taking: Reported on 11/05/2022) Ivmuz-3-JHA-EPA-Fish Oil 1,000 mg (120 mg-180 mg) cap [...] Love Segovia APRN.CNM documented in this encounter [facility] 11-18-2022 Note HNO ID: [id number] Author: Gabby Manzano APRN.CNP Service: ? Author [...] ovarians cysts on CT in ER at [facility] PAST SURGICAL HISTORY Procedure Laterality Date EGD 02/26/2021 KYLEENA IUD 06/28/2020 Placed in office NONE ALLERGIES Dust Mites MEDICATIONS levonorgestrel (KYLEENA) 17.5 mcg/24 hrs (5 yrs) 19.5 mg IUD 1 Each by INTRAUTERINE route as directed. Luywpkusexhovnm-Ygiclqehz-DJ (BROMFED DM) 2-30-10 mg/5 mL syrup Take [...] mouth. (Patient not taking: Reported on 11/05/2022) Mxflt-0-ZHX-EPA-Fish Oil 1,000 mg (120 mg-180 mg) cap [...] treatment with p (more content not included)... [facility] 11-18-2022 History of Presen t illness [...] ovarians cysts on CT in ER at [facility] PAST SURGICAL HISTORY Procedure Laterality Date EGD 02/26/2021 KYLEENA IUD 06/28/2020 Placed in office NONE ALLERGIES Dust Mites MEDICATIONS levonorgestrel (KYLEENA) 17.5 mcg/24 hrs (5 yrs) 19.5 mg IUD 1 Each by INTRAUTERINE route as directed. Xiuzrhkolhwzqvg-Niaernsfq-MU (BROMFED DM) 2-30-10 mg/5 mL syrup Take [...] mouth. (Patient not taking: Reported on 11/05/2022) Rfdcv-5-EZL-EPA-Fish Oil 1,000 mg (120 mg-180 mg) cap [...] Gabby Manzano APRN.CNP documented in this encounter [facility] 11-18-2022 Instructions Gabby Manzano APRN.CNP - 11/18/2022 [...] Discussed expected course of illness Gabby Manzano APRN.RETURNER CONJUNCTIVITIS GENERAL INFORMATION: Conjunctivitis is also known [...] F (38 C). documented in this encounter [facility] 11-05-2022 Note HNO ID: [id number] Author: Geovanna Butler APRN.REYNALDO Service: ? Author Type: Nurse Practitioner Type: [...] ovarians cysts on CT in ER at [facility] PAST SURGICAL HISTORY Procedure Laterality Date EGD [...] mouth. (Patient not taking: Reported on 11/05/2022) Wuzcm-4-ROE-EPA-Fish Oil 1,000 mg (120 mg-180 mg) cap [...] Patient agreeable to treatment plan. Geovanna Butler APRN.CNP [facility] Diagnosis Mastalgia- Primary Mastodynia [facility] Diagnosis Acute cough- Primary [facility] Diagnosis Chronic left-sided thoracic back pain- Primary Polyarthralgia Pain in joint, multiple sites [facility] Diagnostic Procedure Only (Routine) - Authorized Specialty Diagnoses / Procedures Referred By Contac t Referred To Contact [facility] Diagnoses Mastalgia Procedures US BREAST LTD RIGHT US BREAST UNI REAL TIME WITH IMAGE LIMITED Love Segovia APRN.CNM [address] [place] [address] [facility] [address] [place] [address] Referral ID Status Reason Start Date Expiration Date Visits Requested Visits Authorized [id number] Authorized Auto-Generat ed Referral 12/09/2022 01/08/2024 1 1 * Diagnostic Procedure Only (Routine) - Authorized Specialty Diagnoses / Procedures Referred By Emerald vazquez Referred To Contact [facility] Diagnoses Mastalgia Procedures ABBY DIAGNOSTIC BILATERAL DIAGNOSTIC MAMMOGRAPHY COMPUTER-AIDED DETCJ BI Love Segovia APRN.CNDimitry [address] [place] [address] [facility] [address] [place] [address] Referral ID Status Reason Start Date Expiration Date Visits Requested Visits Authorized [id number] Authorized Auto-Generat ed Referral 12/09/2022 01/08/2024 1 1 [facility] Summary Purpose Family History No Family History Records FoundNo Family History Records FoundNo Family History Records FoundNo Family History Records Found Advance Directives No Advanced Directives Records FoundNo Advanced Directives Records FoundNo Advanced Directives Records FoundNo Advanced Directives Records Found Reason for Referral Specialty Diagnoses / Procedures Referred By Emerald t Referred To Contact [facility] Diagnoses Chronic left-sided thoracic back pain Procedures CONSULT TO PHYSICAL THERAPY PHYSICAL THERAPY EVALUATION HIGH COMPLEX 45 MINS Rusty Patel, DO [address] [address] [facility] [place] [address] [place] [address] Referral ID Status Reason Start Date Expiration Date Visits Requested Visits Authorized [id number] Pending Review Auto-Generat ed Referral 08/23/2023 08/22/2024 1 1 Specialty Diagnoses / Procedures Referred By Contac t Referred To Contact [facility] Diagnoses Polyarthralgia Chronic left-sided thoracic back pain Procedures HLA-B27 PCR HLA I LOW RESOLUTION ONE ANTIGEN EQUIVALENT EACH Rusty Patel, DO [address] [address] [facility] [address] [place] [address] Referral ID Status Reason Start Date Expiration Date V isits Requested Visits Authorized [id number] Closed PCP Requested Referral Auto-Generated Referral 08/23/2023 11/21/2023 1 1 Additional Source Comments INFORMATION SOURCE (unrecogn ized section and content) DATE CREATED AUTHOR AUTHOR'S ORGANIZ ATION 07/30/2021 [facility] DATE CREATED AUTHOR AUTHOR'S ORGANIZ ATION 01/15/2023 [facility] DATE CREATED AUTHOR AUTHOR'S ORGANIZ ATION 08/28/2023 [facility] Source Comments (unrecognize d section and content) In the event this informatio n is protected by the Federal Confidentiality of Alcohol and Drug Abuse Patient Records regulations: The Federal rules restrict any use of the information to criminally investigate or prosecute any alcohol or drug abuse patient.[facility] the event this information is protected by the Federal Confidentiality of Alcohol and Drug Abuse Patient Records regulations: The Federal rules restrict any use of the information to criminally investigate or prosecute any alcohol or drug abuse patient.[facility] the event this information is protected by the Federal Confidentiality of Alcohol and Drug Abuse Patient Records regulations: The Federal rules restrict any use of the information to criminally investigate or prosecute any alcohol or drug abuse patient.[facility] the event this information is protected by the Federal Confidentiality of Alcohol and Drug Abuse Patient Records regulations: The Federal rules restrict any use of the information to criminally investigate or prosecute any alcohol or drug abuse patient.[facility] Reason for Visit (unrecogniz ed section and content) Reason Comments Breast Problem Reason Comments Cough Pt reported cough, x 2 wks. Reason Comments New Care Teams (unrecognized sec tion and content) Promotions Assistant Relationship Specialty Start Date End Date Michelle Barber MD [address] [place], [place] [id number] PCP - General 05/08/02 FOR RECORDS PERTAINING [...] BE BASED ON THE PRIMARY CLINICAL RECORDS. [facility]. provides no warranty or guarantee of the accuracy or completeness of information in this document.
== END | disposition home or self-care (01) ==
LOC: LABSPEC 10:51
PROVIDERS: PCP Internal Medicine; Visit Provider Internal Medicine
DX: J02.9 Acute pharyngitis, unspecified (principal)
CPT/HCPCS: 87502; 87635

== ENCOUNTER 2023-10-07 12:01 | Emergency (ER) | payer MEDICAID, SELFPAY ==
[2023-10-07 12:01] VITALS: BP 116/88; PULSE 110; PULSE 120; RESP 14; RESP 18; TEMP 37.2; O2SAT 100; O2SAT 98; BMI 21.3
--- NOTE | 2023-10-07 12:10 | EX.ED.DYSGE1 ---
HPI <REJI Trimble - Last Filed: 10/07/23 13:08> History of Present Illness Chief Complaint: Sore Throat Narrative Narrative: 22-year-old female states last night she developed congestion and a sore throat and this morning her throat hurts more and her uvula looks swollen. She is able to tolerate p.o. intake and has no difficulty breathing. She felt warm last night but has no documented fever. She had her tonsils out a few years ago. PFSH <REJI Trimble - Last Filed: 10/07/23 13:08> [facility] Medical History Bilateral headaches Chronic neck pain Chronic thoracic back pain Environmental allergies Family history of breast cancer GERD (gastroesophageal reflux disease) H/O emotional problems Intertrigo Macromastia Shoulder pain Home Medications albuterol sulfate 90 mcg/actuation aerosol inhaler 2 puff inhalation Q6H PRN shortness of breath or wheezing #8.5 grams 04/13/23 [Rx Last Taken Unknown] fluticasone propionate 50 mcg/actuation nasal spray,suspension (Flonase Allergy Relief) 1 spray intranasal DAILY PRN allergy symptoms #16 grams 04/13/23 [Rx Last Taken Unknown] cyclobenzaprine 5 mg tablet 5 mg PO TID PRN pain #30 tabs 08/11/23 [Rx Last Taken Unknown] montelukast 10 mg tablet (Singulair) 10 mg PO QHS #30 tabs 08/12/23 [Rx Last Taken Unknown] bupropion HCl 150 mg tablet,12 hr sustained-release (Wellbutrin SR) 150 mg PO BID #60 ea 08/18/23 [Rx Last Taken Unknown] meloxicam 7.5 mg tablet 7.5 mg PO DAILY 10/07/23 [History Last Taken Unknown] Allergy/AdvReac Type Severity Reaction Status Date / Time house dust Allergy Mild Rash Verified 10/07/23 12:03 Family History Grandmother Breast cancer Cancer Aunt Breast cancer Surgical History History of tonsillectomy History of wisdom tooth extraction Social History household members: family current occupational status: employed current occupation: daycare Smoking Status: Never smoker Electronic Cigarette Use: not used alcohol intake: never substance use type: does not use what type of physical activity do you participate in: none do you feel safe at home: Yes additional social history: Does Not Take Aspirin Does Not Take Ibuprofen pt denies yonis, pt denies vaping, pt denies edibles. ROS <REJI Trimble - Last Filed: 10/07/23 13:08> ROS ED ROS Narrative Constitutional: Negative for fever, chills. ENT: Positive for sore throat, congestion. Respiratory: Negative for shortness of breath, cough. Neuro: Negative for headache. EXAM <REJI Trimble Last Filed: 10/07/23 13:08> Physical Exam Narrative Exam Narrative: CONST: Patient sitting in no acute distress. EYES: Normal inspection. ENT: Midline and large erythematous uvula, no exudate, airway patent, no stridor or drooling, no trismus or tongue elevation, sublingual space is soft. NECK: Normal inspection. No lymphadenopathy, trachea midline. RESP: No respiratory distress, CTAB. CVS: Regular rate and rhythm, no murmur, no gallop. SKIN: Color normal, no rash, warm, dry, intact. EXTREMITIES: Normal appearance, no pedal edema. NEURO: Alert and answering questions appropriately. PSYCH: Normal affect. Const Vital Signs: 10/07/23 12:01 10/07/23 12:01 Temperature 99 F Temperature Source Temporal Pulse Rate 120 H 110 H Respiratory Rate 18 14 Blood Pressure 116/88 H Blood Pressure Mean 97 Pulse Ox 98 100 Oxygen Delivery Method Room Air Room Air <Dr. Panfilo Denton DO - Last Filed: 10/07/23 13:12> Physical Exam Const Vital Signs: 10/07/23 12:01 10/07/23 12:01 Temperature 99 F Temperature Source Temporal Pulse Rate 120 H 110 H Respiratory Rate 18 14 Blood Pressure 116/88 H Blood Pressure Mean 97 Pulse Ox 98 100 Oxygen Delivery Method Room Air Room Air MDM <REJI Trimble - Last Filed: 10/07/23 13:08> MDM MDM Narrative Medical decision making narrative: Patient presents with sore throat. She appears well and nontoxic. HR is 120 with otherwise normal vital signs. Clinically she is in no distress and speaking full sentences with no voice changes. No stridor or dysphonia. She does have a mildly edematous uvula and oropharyngeal erythema. Airway is patent. Rapid strep is positive. She was treated with Decadron, ibuprofen, and Bicillin shot. I discussed symptomatic management at home and she was discharged in stable condition. <Dr. Panfilo Denton, DO - Last Filed: 10/07/23 13:12> [facility] Treatment and Re-Evaluation :: I have personally performed a face to face assessment of the patient and have reviewed the DONNY Note. I performed a substantive portion of the visit including all aspects of the following. My hardy findings include: History: Patient presents with a sore throat that has been getting worse since yesterday. Patient states she woke up today and noticed that her uvula was swollen. Patient states it is gradually gotten worse. Patient describes her pain as sharp. Patient states it is worse with swallowing. Patient states it is only in her throat. Patient also admits to mild headache and some sinus pressure earlier this week. Patient denies any nausea, vomiting, diarrhea. Patient denies any cough. Patient admits to some subjective fevers and chills but did not take her temperature. Exam: Vital signs are stable except for mild tachycardia of 120. Patient is afebrile. Patient is in no acute distress. Oral mucosa is pink and moist. Oropharynx is erythematous. The uvula is mildly edematous. There is no obstruction of the airway. Neck is supple. Trachea is midline. There is some mild tender anterior cervical lymphadenopathy. There is no JVD noted. Heart was regular and tachycardic. Lungs are clear and equal bilaterally. Cranial nerves II through XII are intact. There are no focal motor or sensory deficits noted. Medical Decision Making: Differential diagnosis includes viral pharyngitis and strep pharyngitis. Rapid strep will be obtained to assess for strep pharyngitis. Patient was given a dose of Decadron and ibuprofen here. Rapid strep was reviewed and was positive. Patient was given a dose of Bicillin here. Patient was instructed to continue Tylenol and ibuprofen as needed for pain or fever. Patient understood and was agreeable with the plan. All questions were answered. Discharge Plan Triage Chief Complaint: Sore Throat ED Midlevel Provider: Shanell Plata ED Provider: Panfilo Denton Dx/Rx/DC Orders Clinical Impression: Acute streptococcal pharyngitis Instructions: ED Pharyngitis, Strep (Confirmed) Prescriptions: No Action fluticasone propionate [Flonase Allergy Relief] 50 mcg/actuation spray,suspension 1 spray intranasal DAILY PRN (Reason: allergy symptoms) Qty: 16 0RF Rx Instructions: administer into each nostril albuterol sulfate 90 mcg/actuation HFA aerosol inhaler 2 puff inhalation Q6H PRN (Reason: shortness of breath or wheezing) Qty: 8.5 0RF meloxicam 7.5 mg tablet 7.5 mg PO DAILY cyclobenzaprine 5 mg tablet 5 mg PO TID PRN (Reason: pain) Qty: 30 0RF montelukast [Singulair] 10 mg tablet 10 mg PO QHS Qty: 30 3RF bupropion HCl [Wellbutrin SR] 150 mg tablet sustained-release 12 hr 150 mg PO BID Qty: 60 5RF Primary Care Provider: Carmencita Bullard Referrals: Carmencita Bullard MD [Primary Care Provider] - Activity Restrictions/Additional Instructions: You were treated with a penicillin shot for strep throat. At home drink plenty of fluids and alternate Tylenol and ibuprofen every 3 hours as needed for pain. Disposition Disposition: Home, Self Care
[2023-10-07] MEDS: dexAMETHasone 10 MG/ML Vial PO.IVFORM (12:16)
[2023-10-07] MEDS: Ibuprofen 200 MG Tablet 600 MG PO (12:16)
[2023-10-07] MEDS: Penicillin G Benzathine 1.2 MU/2 ML Syringe IM (13:22)
[2023-10-07 13:24] VITALS: BP 120/68; PULSE 89; RESP 14; TEMP 36.6; O2SAT 100
== END 2023-10-07 13:25 | disposition home or self-care (01) ==
PROVIDERS: Emergency Provider Emergency Medicine; PCP Internal Medicine; Visit Provider Emergency Medicine
DX: J02.0 Streptococcal pharyngitis (principal); R00.0 Tachycardia, unspecified; Z79.899 Other long term (current) drug therapy
CPT/HCPCS: 87651; 96372; 99283

== ENCOUNTER → 2024-01-10 | Outpatient (CLI) | payer MEDICAID, SELFPAY ==
[2024-01-10 15:51] LABS: Erythrocyte Sedimentation Rate 3 mm/hr (0-30)
[2024-01-10 16:09] LABS: Anion Gap 5 (5-15); BUN 14 mg/dL (7-18); CRP < 2.90 mg/L (0.0-3.0); Calcium,Total 9.6 mg/dL (8.5-10.1); Chloride 104 mmol/L (98-107); Creatinine, Serum 0.82 mg/dL (0.55-1.02); EST Glomerular Filtration Rate 90 mL/min (>60); Est Glom Filt Rate - Afr Amer 109 mL/min (>60); Ferritin 24 ng/mL (8-252); Glucose 99 mg/dL (74-106); Iron 135 ug/dL (50-170); Iron Binding Capacity,Total 436 ug/dL (250-450); Potassium 4.1 mmol/L (3.5-5.1); Sodium Level 137 mmol/L (136-145)
[2024-01-10 23:21] LABS: Vitamin B12 403 pg/mL (211-911)
[2024-01-12 16:10] LABS: Lyme Scn Total Ab w/Rflx Negative (Negative)
[2024-01-13 17:07] LABS: Anti-Centromere B Ab <0.2 AI (0.0-0.9); Anti-Chromatin <0.2 AI (0.0-0.9); Anti-Jo <0.2 AI (0.0-0.9); Anti-Nuclear Antibody Test Negative (.); Anti-Scleroderma-70 AB <0.2 AI (0.0-0.9); Anti-dsDNA Ab 1 IU/mL (0-9); RNP Ab <0.2 AI (0.0-0.9); SJOGREN'S Anti-SS-A test < 0.2 AI (0.0-0.9); SJOGREN'S Anti-SS-B test < 0.2 AI (0.0-0.9); Smith Ab <0.2 AI (0.0-0.9)
== END | disposition home or self-care (01) ==
LOC: BIMLAB 12:02
PROVIDERS: PCP Internal Medicine; Referring Provider Internal Medicine; Visit Provider Internal Medicine
DX: N92.6 Irregular menstruation, unspecified (principal); G89.29 Other chronic pain; R20.2 Paresthesia of skin; R20.0 Anesthesia of skin
CPT/HCPCS: 36415; 80048; 82607; 82728; 83540; 83550; 85652; 86038; 86140; 86225; 86235; 86618

== ENCOUNTER → 2024-02-09 | Outpatient (CLI) | payer MEDICAID, SELFPAY ==
--- NOTE | 2024-02-09 13:48 | NEURO ---
NCS and/or EMG Patient Report Ordering Doctor: Carmencita Bullard DATE OF SERVICE: 02/09/24 Hoda presents with complaints of left lateral thigh pain and numbness. Electrodiagnostic Findings: Left peroneal motor nerve demonstrates normal distal latency, amplitude and conduction velocity. Normal left tibial motor response. Normal left tibial and peroneal F?waves. Normal left H?reflex. Normal left sural and superficial peroneal responses. Normal left lateral femoral cutaneous response. Needle EMG testing was performed the left lower limb. All muscles tested showed no evidence of denervation with normal motor unit action potentials. Electrodiagnostic impression: This is a normal electrodiagnostic study of the left lower limb there is no electrodiagnostic evidence for peripheral neuropathy or lumbosacral radiculopathy. Multi Select Codes Neurology Neurology Interp Codes: 41825-54 Musc test done w/n test comp (interp) and 71843-87 Nrv cndj tst 5-6 studies (interp)
== END | disposition home or self-care (01) ==
LOC: PSN 12:21
PROVIDERS: PCP Internal Medicine; Referring Provider Internal Medicine; Visit Provider Internal Medicine
DX: R20.0 Anesthesia of skin (principal); R20.2 Paresthesia of skin
CPT/HCPCS: 95886; 95909

== ENCOUNTER 2024-04-25 17:50 | Outpatient (RCR) | payer MEDICAID, SELFPAY ==
--- NOTE | 2024-04-25 18:54 | HP.PTEVAL ---
Patient's Visit Information Visit Information Visit Information: RIC MODI is a 23 year old F referred to Physical Therapy by REJI Garvin with a diagnosis of scapular dyskinesia. Date of Evaluation: 04/25/24 Physical Therapist: Panfilo Pagan, DPT, OCS, CSCS Visit Plan Frequency: 2x /Week Duration: 4-6 Weeks Plan: 2x/week for 4-6 weeks.. IE: given L thoracic rotation with OP and chair thoracic extension with OP 10x each 5-8 x/day. treat with : PA thoracic mobs, rib mobs L, L thoracic rotation and mobs to T/S. TP STM to L scapular muscles( consider dry needling), progression of aggressiveness of thoracic ROM ex scapular and thoracic strengtheing to HEP. Pt to spinal doctor next week but MRI was clear and previous Soft tissue PT was no help. Injection in thoracic area helped for one month. Subjective Subjective: L sided thoracic and scap pain and down to ribsand around front. Had it for years without reason. Treated last winter without improvement with soft tissue. had steroid injections did help for a month about 60%. Pain is daily for the most part, worsening later in day. painting the house the last week has made everything worse lately. Getting pain up in the am lately but not in the past. 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 Wants improvement now b.c she wants to be able to pick them up. Work is starting a nail business. Sitting down is more comfortable. Worse later in day. sleep is not a problem. No numbness or tingling or pain in the arms, no neck pain, maybe alittle.Was going to pilates at [employer] and loved it and it helped. Basic ADLs all done I but worse end of day. Pain L scap: Pain Intensity (Out of 10): 0 Pain Intensity Range: 0 and 8 Objective Objective: Walks into PT I without gait deviations. I trasnfers and gait. No balance deficits. Posture is forward head and protracted scap but fairly symmetrical. Max tenderness over L paraspinal and into scapula, also along last two ribs and anteriorly with max tender spot between 2nd to last and last rib in cartilage. PA pressure in mid thoracic spine creates pain L and near scapula. Scapula seem to move well and symmetrically with UE movements without any winging. Thoracis ROM is painful in that spot in extension at end range over chair and not in flexion, L rotation also limited and painful vs R rotation. Ribs seem to move well but tender L side. infraspiantus also tender. UE aROM WNL and without pain cervical AROM WNL and without pain. reflexes patella and achilles and bi and tri are 2/3 Sensation is WNL in UE and LE(has numb spot L lateral leg for two years for no reason. strength UE flexiona dn abd 4-/5 with some pain L sided scap. er hurts and 4-/5 L vs 4 R, IR 4+ no pain. serratus is painful supine on L not R. elbow and wrist strength 4+ without pain.(slight with L triceps testing. - c/s compression. - slump and - SLR Balance/Special Test Scores Quick DASH Score: 31.8175 Goals Goal 1:: I appropriate ex to manage pain Goal Time Frame: 4-6 Weeks Goal 2:: Pain in L thoraci area 75% better adn 2/10 at worst Goal Time Frame: 4-6 Weeks Goal 3:: full thoracic AROM without pain Goal Time Frame: 4-6 Weeks Goal 4:: 15 or less quick dash Goal Time Frame: 4-6 Weeks Goal 5:: Make it through work day without increased pain Goal Time Frame: 4-6 Weeks Rehabilitation Potential Physical Therapy Diagnosis: thoracic pain limiting comfortable function and job possibilities. Rehabilitation Potential: Questionable Anticipated Interventions Patient/Client Instruction: Educate patient on: Condition and Plan of Care For the Purpose of:: To decrease pain, To increase ROM and To improve nutrient delivery to tissue Therapeutic Exercise to Include: Strength training, Body mechanics, Postural training, Flexibilty training, Passive ROM and Active ROM For the Purpose of:: To decrease pain, To increase ROM, To improve nutrient delivery to tissue, To improve muscle performance and motor function and To increase tolerance to activity/condition/position Manual Therapy Techniques to Include: Trigger point massage, Mobilization, Passive ROM and Soft tissue mobilization For the Purpose of:: To decrease pain, To increase ROM, To improve nutrient delivery to tissue, To increase oxygenation perfusion, To improve muscle performance and motor function, To increase tolerance to activity/condition/position and To improve gait and locomotor functions Thermo therapy (hot pack): Yes For the Purpose of:: To decrease pain, To increase ROM and To improve nutrient delivery to tissue Text: Thank you for the opportunity to evaluate your patient. For Medicare and Medicare HMO plans, please review the plan of care and approve it. It will need to be FAXED BACK to us at [phone] for Medicare purposes. For Medicare only, by signing this I certify the plan of care. Please let me know if there are questions or concerns regarding this plan of care. Physician Signature: Date:
--- NOTE | 2024-06-20 11:50 | HP.PT.NRP ---
Patient Information Patient Information: RIC MODI was seen in my office for initial evaluation on 04/25/24. The following Plan of Care was established for this patient: POC Established Initial Frequency: 2x /Week Initial Duration: 4-6 Weeks Anticipated Interventions Patient/Client Instruction: Educate patient on: Condition and Plan of Care For the Purpose of:: To decrease pain, To increase ROM and To improve nutrient delivery to tissue Therapeutic Exercise to Include: Strength training, Body mechanics, Postural training, Flexibilty training, Passive ROM and Active ROM For the Purpose of:: To decrease pain, To increase ROM, To improve nutrient delivery to tissue, To improve muscle performance and motor function and To increase tolerance to activity/condition/position Manual Therapy Techniques to Include: Trigger point massage, Mobilization, Passive ROM and Soft tissue mobilization For the Purpose of:: To decrease pain, To increase ROM, To improve nutrient delivery to tissue, To increase oxygenation perfusion, To improve muscle performance and motor function, To increase tolerance to activity/condition/position and To improve gait and locomotor functions Thermo therapy (hot pack): Yes For the Purpose of:: To decrease pain, To increase ROM and To improve nutrient delivery to tissue Last Seen Last Seen: This patient was last seen in our office 04/25/24. Pertinent comments regarding their Physical therapy will appear below: Pt seen for IE and POC established. She did not return for any further visits. At this point, it has been over 6 weeks and I will discontinue from my care At this point I will be discontinuing this patient from physical therapy. I would be happy to see this patient again in the future if found appropriate by the physician. Thank you! Panfilo Pagan, DPT, OCS, CSCS Balance/Gait/Functional tests Balance/Special Test Scores Quick DASH Score: 31.8102
== END 2024-04-25 19:00 | disposition home or self-care (01) ==
LOC: PT 17:50
PROVIDERS: PCP Internal Medicine; Referring Provider Physician Assistant; Visit Provider Physician Assistant
DX: G25.89 Other specified extrapyramidal and movement disorders (principal)
CPT/HCPCS: 97162

== ENCOUNTER 2024-09-06 13:00 | Outpatient (RCR) | payer MEDICAID, SELFPAY ==
--- NOTE | 2024-08-15 15:21 | HP.PTEVAL ---
Patient's Visit Information Visit Information Visit Information: RIC MODI is a 23 year old F referred to Physical Therapy by Dr. Jimena Davidson DO with a diagnosis of TMD bilaterally. Date of Evaluation: 08/15/24 Physical Therapist: Pillo Heck DPT Visit Plan Frequency: 2x /Week Duration: 6 Weeks Plan: 1) masseter massage, progressing to pterygoid massage as neeed 2) Rocobado 6 exercises (given at IE, review with patient) 3) mandible isometrics 4) US, DN as needed for initial pain control Subjective Subjective: Pt. is here today for her initial evaluation with with diagnosis of TMD bilaterally, L worse than R. Pt. reports having symptoms for ~6 years now, but has been worsening over this time. She reports increased pain with biting, chewing, but her symptoms seem to be worse at night. Pt. has tried night guarded, manual massage and a laser treatment. She has not had much success with her symptoms yet. Pt. reports occasional locking, but us able to reduce with lateral deviation. She does have some grinding on the L side at times. She reports having to cut food to smaller pieces as her pain is worse with increased opening. Pt. reports some tightness in her neck at times as well. She does have some chronic mid thoracic spine pain as well. Pt. is hopeful to reduce symptoms in order to get back to all eating activities without limitations. Pain L TMJ: Pain Intensity (Out of 10): 2 Pain Intensity Range: 0 and 5 R TMJ: Pain Intensity (Out of 10): 1 Pain Intensity Range: 0 and 4 Objective Objective: POSTURE: Pt. has slight FH and rounded shoulders with cervical protrusion. Pt. is able to improve with VC/TCing. PALPATION: Pt. has tenderness at SCM as insertion as mastoid, L masseter, L pterygoid. NEURO: Pt. has normal sensation in BLEs, normal DTR noted. ROM: PT. has 31 deg of mouth opening (low end of normal), No deviation noted with opening and closing. Pt. negron equal, but limited lateral deviation (mild increase in symptoms). Pt. is able to fully close without issues. Increased symptoms with biting down. MMT: Pt. has normal cervical isometrics, normal mandible stabilization noted to over pressure. Pt. did have increased pain with passive OP with lateral deviation, pain at TMJ ipsilaterally. Goals Goal 1:: LTG: pt. to be I with HEP. Goal Time Frame: 4-6 Weeks Goal 2:: LTG: Pt to open and close her mouth without increase in TMJ pain. Goal Time Frame: 4-6 Weeks Goal 3:: LTG: Pt. to have no TMJ issues with eating. Goal Time Frame: 4-6 Weeks Goal 4:: LTG: Pt. to sleep throughout the night without increase in TMJ pain. Goal Time Frame: 4-6 Weeks Rehabilitation Potential Physical Therapy Diagnosis: Pt. has signs and symptoms consistent with bilateral TMD. Pt. has increased pain with biting, chewing and with lateral deviations of mandible. Pt. would benefit from PT to increase her ROM, decrease muscle tension and increase postural strength in order to get back to all activties without limitations. Rehabilitation Potential: Excellent Anticipated Interventions Patient/Client Instruction: Educate patient on: Condition, Plan of Care, Risk Factors and Benefits of Fitness Program For the Purpose of:: To foster healthy habits, To improve decision making, To facilitate caregiver knowledge, To improve self management, To prevent re-injury and To improve ability to perform tasks related to life management Manual Therapy Techniques to Include: Trigger point massage, Mobilization, Functional dry needling and Soft tissue mobilization For the Purpose of:: To decrease pain, To increase ROM, To improve nutrient delivery to tissue, To increase oxygenation perfusion, To improve muscle performance and motor function, To improve ability to perform ADL's, To increase tolerance to activity/condition/position, To decrease soft tissue restriction and To increase flexibility/ROM Ultrasound (thermal/non thermal): Yes For the Purpose of:: To decrease pain, To increase ROM, To improve nutrient delivery to tissue and To increase oxygenation perfusion Text: Thank you for the opportunity to evaluate your patient. For Medicare and Medicare HMO plans, please review the plan of care and approve it. It will need to be FAXED BACK to us at [phone] for Medicare purposes. For Medicare only, by signing this I certify the plan of care. Please let me know if there are questions or concerns regarding this plan of care. Physician Signature: Date:
--- NOTE | 2024-09-06 16:54 | HP.PTDCSUM_ITS ---
Discharge Summary D/C summary: It has been my pleasure to treat RIC MODI referred by Dr. Jimena Davidson DO, with the diagnosis of TMD bilaterally for a total of 5 visit(s). Discharge Date: 09/06/24 Please see the following information for a summary of their discharge status. Subjective Subjective: Pt. reports overall not having any relief with PT. She reports some of the exercises bother her back as well. Pt. reports having a PARKINSON as well today. Pt. reports symptoms are overall the same. Pain L TMJ: Pain Intensity (Out of 10): 5 R TMJ: Pain Intensity (Out of 10): 5 PARKINSON: Pain Intensity (Out of 10): 6 Overall Improvement % Improvement: 5 Objective Objective/Function: Pt. is overall not having much relief with PT. She continues to feel tight in B masseters and pterygoids. Pt. does not appear to have any la teral deviations of mandible with opening and closing. She does have slight tightness with opening her mouth. Pt. has been educated with racabado exercises, DFM and stretching. We tried some mobilizations as well. Nothing has giving much relief. Pt. would like to return to physician to determine best course of action at this point in time. Goals Goal 1:: LTG: pt. to be I with HEP. Goal Progress: Goal Met Goal 2:: LTG: Pt to open and close her mouth without increase in TMJ pain. Goal Progress: Not Progressing Goal 3:: LTG: Pt. to have no TMJ issues with eating. Goal Progress: Not Progressing Goal 4:: LTG: Pt. to sleep throughout the night without increase in TMJ pain. Goal Progress: Not Progressing Plan Plan: Pt. to be DC back to physician to determine the best course of action as she is not improving with PT. D/C Information d/c sentence: If there are questions or concerns regarding this patient's physical therapy, please feel free to call me at [phone]. Thank you for the referral of this patient. Sincerely, Pillo Gauthier Sipos, DPT Balance/Gait/Functional tests Improvement % Improvement: 5
== END 2024-09-06 19:00 | disposition home or self-care (01) ==
LOC: PT 13:00
PROVIDERS: PCP Internal Medicine; Referring Provider Internal Medicine; Visit Provider Internal Medicine
DX: M26.609 Unspecified temporomandibular joint disorder, unspecified side (principal)
CPT/HCPCS: 97140; 97161

== ENCOUNTER → 2024-10-05 | Outpatient (CLI) | payer MEDICAID, SELFPAY ==
[2024-10-05 12:38] LABS: Absolute Lymphocyte Count 1.16 X10^3/uL (0.83-4.51); Absolute Neutrophil Count 4.2 X10^3/uL (2.0-7.7); Basophil# 0.03 X10^3/uL; Basophil% 0.5 % (0-1); Eosinophil# 0.05 X10^3/uL; Eosinophils% 0.9 % (0-5); Hematocrit 44.1 % (37-47); Lymphocyte # 1.16 X10^3/ul (0.83-4.51); Lymphocyte % 20.4 % (19-41); Mean Corpuscular Hgb 29.8 pg (27.0-32.0); Mean Corpuscular Volume 87.7 fL (81-99); Mean Platelet Vol. 10.9 fl (6.2-12.0); Monocyte# 0.26 X10^3/uL; Monocyte% 4.6 % (0-10); NRBC Flagged by Analyzer 0 % (0-5); Neutrophil # 4.18 X10^3/uL (2.7-7.7); Neutrophil % 73.2 % (47-70); Platelet Count 221 K/mm3 (150-450); RBC Distribution Width CV 12.9 % (11.6-14.6); RBC Distribution Width SD 41.4 fl (35.1-43.9); Red Blood Count 5.03 M/mm3 (4.2-5.4); White Blood Count 5.7 K/mm3 (4.4-11.0)
[2024-10-05 16:51] LABS: ALB/GLOB Ratio 1.5 RATIO (0.9-2.4); AST(SGOT) 18 U/L (<=31); Alanine Aminotransfer ALT/SGPT 12 U/L (<=34); Albumin, Serum 4.3 g/dL (3.5-5.0); Alkaline Phosphatase 95 U/L (35-104); Anion Gap 15 (5-15); BUN 12 mg/dL (4-19); BUN/Creat Ratio 17.6 RATIO (10-20); Calcium,Total 9.7 mg/dL (7.6-11.0); Chloride 100 mmol/L (98-108); Creatinine, Serum 0.68 mg/dL (0.70-1.20); EST Glomerular Filtration Rate 125 (>60); Globulin 2.8 g/dL (2.2-4.2); Glucose 85 mg/dL (70-99); Potassium 4.5 mmol/L (3.3-5.1); Protein, Total 7.1 g/dL (5.9-8.4); Sodium Level 138 mmol/L (133-145)
[2024-10-05 19:32] LABS: CPK Total, Creatine Kinase 39 U/L (24-195)
[2024-10-06 15:08] LABS: Anti-Smooth Muscle ABS 7 Units (0-19)
== END | disposition home or self-care (01) ==
LOC: BIMLAB 11:01
PROVIDERS: PCP Internal Medicine; Referring Provider Internal Medicine; Visit Provider Internal Medicine
DX: G89.29 Other chronic pain (principal)
CPT/HCPCS: 36415; 80053; 82550; 83516; 85025

== ENCOUNTER 2024-10-06 13:45 | Emergency (ER) | payer MEDICAID, SELFPAY ==
[2024-10-06 13:46] VITALS: BP 133/83; PULSE 95; RESP 16; TEMP 36.2; O2SAT 100; BMI 20.5
--- NOTE | 2024-10-06 14:53 | EKG12_ITS ---
Test Reason : DIZZY Blood Pressure : */* mmHG Vent. Rate : 97 BPM Atrial Rate : 97 BPM P-R Int : 136 ms QRS Dur : 76 ms QT Int : 346 ms P-R-T Axes : 81 64 56 degrees QTcB Int : 439 ms Normal sinus rhythm with sinus arrhythmia Right atrial enlargement Borderline ECG Confirmed by PETER CLIFFORD, TESFAYE ([id number]), mapping editor MARYANN JIMENEZ ([id number]) on 10/09/2024 9:20:20 AM Referred By: Confirmed By: TESFAYE GREEN MD
[2024-10-06] MEDS: 0.9% Normal Saline (1000mL) 1,000 ML 1000 ML IV (15:29)
[2024-10-06 15:46] LABS: Absolute Lymphocyte Count 1.58 X10^3/uL (0.83-4.51); Basophil# 0.03 X10^3/uL; Basophil% 0.4 % (0-1); Eosinophil# 0.06 X10^3/uL; Eosinophils% 0.8 % (0-5); Hematocrit 42.5 % (37-47); Hemoglobin 14.6 g/dL (12.0-15.0); Lymphocyte # 1.58 X10^3/ul (0.83-4.51); Mean Corp Hgb Conc 34.4 g/dL (32-36); Mean Corpuscular Hgb 29.7 pg (27.0-32.0); Mean Corpuscular Volume 86.6 fL (81-99); Mean Platelet Vol. 10.3 fl (6.2-12.0); Monocyte# 0.45 X10^3/uL; Monocyte% 6.3 % (0-10); NRBC Flagged by Analyzer 0 % (0-5); Neutrophil # 5.03 X10^3/uL (2.7-7.7); Neutrophil % 70.1 % (47-70); Platelet Count 222 K/mm3 (150-450); RBC Distribution Width CV 12.8 % (11.6-14.6); RBC Distribution Width SD 40.4 fl (35.1-43.9); Red Blood Count 4.91 M/mm3 (4.2-5.4); White Blood Count 7.2 K/mm3 (4.4-11.0)
[2024-10-06 15:52] VITALS: BP 127/82; PULSE 85; RESP 16; O2SAT 98
[2024-10-06 16:00] LABS: Color, Urine Yellow (Yellow); Glucose, Dipstick Normal (Normal); Ketone-Dipstick Negative (Negative); Leukocyte Esterase-Dipstick Negative /ul (Negative); Nitrite-Dipstick Negative (Negative); Occult Blood-Urine Negative /ul (Negative); Protein-Dipstick 15 mg/dl (Negative); Specific Gravity, Urine 1.025 (1.002-1.030); Urine Bilirubin Dipstick Negative (Negative); Urine Clarity Sl. Cloudy (Clear); Urine Urobilinogen Normal (Normal)
[2024-10-06 16:06] LABS: Bacteria 2+ /hpf (None Seen); Mucous, Urine 1+ /hpf (<or=2+); Red Blood Cells-Urine 0-5 SEEN /hpf (0-5); Squamous Epithelial Cells - UA 0-5 SEEN /hpf (5-10); White Blood Cells 0 SEEN /hpf (0-5)
[2024-10-06 16:11] LABS: Internal QC Validated? YES +Cl - CLEAR BKGD; Pregnancy, Serum, hCG Quali. NEGATIVE Negative
[2024-10-06 16:18] LABS: Anion Gap 14 (5-15); BUN 12 mg/dL (4-19); BUN/Creat Ratio 17.2 RATIO (10-20); Calcium,Total 9.4 mg/dL (7.6-11.0); Carbon Dioxide 23.7 mmol/L (21.0-32.0); Chloride 102 mmol/L (98-108); Creatinine, Serum 0.71 mg/dL (0.70-1.20); EST Glomerular Filtration Rate 122 (>60); Estimated Creatinine Clearance 107.61 ml/min (50-250); Glucose 88 mg/dL (70-99); Potassium 4.1 mmol/L (3.3-5.1); Sodium Level 140 mmol/L (133-145)
[2024-10-06 16:54] VITALS: BP 111/79; BP 114/74; PULSE 81; PULSE 97
[2024-10-06 17:02] VITALS: BP 111/79; PULSE 85; RESP 16; O2SAT 97
--- NOTE | 2024-10-06 17:50 | EX.ED.DYSGE1 ---
HPI History of Present Illness Chief Complaint: General Illness Informant: patient Onset/Context/Timing Onset: Days (5) Context: Gradual Onset Timing: Continuous Quality: Lightheadedness Location: Generalized Worsened by: Standing Relieved by: Nothing Narrative Narrative: Patient presents with lightheadedness and dizziness that has been getting worse over the past 5 days. Patient states she had a syncopal episode 5 days ago. Patient states she has been feeling lightheaded ever since. Patient states it is worse with standing. Patient states her primary care physician is in the process of testing her for POTS. Patient denies any shortness of breath or cough. Patient admits to some sharp pain in her chest. Patient also admits to some palpitations where she felt like her heart was racing. Patient states she has some blurred vision prior to her syncopal episode 5 days ago. [facility] Medical History (Updated 10/06/24 @ 20:[address] Panfilo Denton DO) Hidradenitis suppurativa H/O emotional problems Family history of breast cancer Shoulder pain Intertrigo Chronic thoracic back pain Chronic neck pain Macromastia GERD (gastroesophageal reflux disease) Bilateral headaches Environmental allergies Home Medications ?Medication ?Instructions ?Recorded ?Last Taken ?Type sertraline 100 mg tablet 100 mg PO QDAY #90 tabs 07/11/24 Unknown Rx bupropion HCl 150 mg tablet,12 hr 150 mg PO BID #60 ea 08/30/24 Unknown Rx sustained-release (Wellbutrin SR) TENS units (TENS 502 device) #1 ea 10/05/24 Unknown Rx spironolactone 100 mg tablet 100 mg PO QHS 10/05/24 Unknown History Allergy/AdvReac Type Severity Reaction Status Date / Time carbamazepine Allergy Intermediate face Verified 10/06/24 13:46 numbness house dust Allergy Mild Rash Verified 10/06/24 13:46 Family History Grandmother Breast cancer Cancer Aunt Breast cancer Surgical History History of tonsillectomy History of wisdom tooth extraction Social History household members: family housing: house current occupational status: unemployed current occupation: previously worked at a daycare Smoking Status: Never smoker Electronic Cigarette Use: not used alcohol intake: never substance use type: does not use what type of physical activity do you participate in: none do you feel safe at home: Yes additional social history: Does Not Take Aspirin Does Not Take Ibuprofen pt denies yonis, pt denies vaping, pt denies edibles. ROS ROS ED Constitutional Constitutional ED: Denies chills or fever(s) Eyes Eyes: Reports blurry vision; Denies diplopia ENT ENT ED: Denies rhinorrhea or sore throat Cardiovascular Cardiovascular: Reports chest pain and palpitations Respiratory/Chest Respiratory/Chest: Denies cough or dyspnea Gastrointestinal Gastrointestinal: Reports nausea; Denies vomiting Genitourinary Genitourinary ED: Denies dysuria or hematuria Musculoskeletal Musculoskeletal: Reports back pain; Denies neck pain Integumentary Denies abscess or rash Neurologic Neurologic: Reports headache(s); Denies weakness Allergic/Immunologic Allergic/Immunologic ED: Denies mouth swelling or urticaria EXAM Physical Exam Const Vital Signs: 10/06/24 13:46 10/06/24 14:10 10/06/24 15:52 Temperature 97.2 F L Temperature Source Temporal Pulse Rate 95 85 Pulse Rate [Sitting (for 1 minute prior to obtaining)] Pulse Rate [Standing (for 1 minute prior to obtaining)] Respiratory Rate 16 16 Respiratory Effort Normal Non-Labored Respiratory Pattern Normal Blood Pressure 133/83 H 127/82 H Blood Pressure [Sitting (for 1 minute prior to obtaining)] Blood Pressure [Standing (for 1 minute prior to obtaining)] Blood Pressure Mean 99 97 Blood Pressure Mean [Sitting (for 1 minute prior to obtaining)] Blood Pressure Mean [Standing (for 1 minute prior to obtaining)] Pulse Ox 100 98 Oxygen Delivery Method Room Air 10/06/24 16:54 10/06/24 17:02 10/06/24 17:56 Temperature 97.8 F Temperature Source Pulse Rate 85 85 Pulse Rate [Sitting (for 1 minute prior to obtaining)] 81 Pulse Rate [Standing (for 1 minute prior to obtaining)] 97 Respiratory Rate 16 16 Respiratory Effort Respiratory Pattern Blood Pressure 111/79 112/65 Blood Pressure [Sitting (for 1 minute prior to obtaining)] 114/74 Blood Pressure [Standing (for 1 minute prior to obtaining)] 111/79 Blood Pressure Mean 89 80 Blood Pressure Mean [Sitting (for 1 minute prior to obtaining)] 87 Blood Pressure Mean [Standing (for 1 minute prior to obtaining)] 89 Pulse Ox 97 98 Oxygen Delivery Method Room Air Positive well nourished and well developed General Appearance ED: well developed and NAD HEENT Reports moist mucous membranes Neck supple and no JVD Resp normal respiratory effort and clear to auscultation bilaterally Cardio regular rate and regular rhythm GI non-tender and non-distended Palpation: soft Extremity normal to inspection General Extremety ED: Negative for edema or tenderness General Extremity: Negative for edema Neuro oriented x3, CN's II-XII intact bilaterally and no sensory deficits noted Sensorium / Orientation: alert Motor Exam: strength 5/5 throughout Psych mental status grossly normal MDM MDM MDM Narrative Medical decision making narrative: Differential diagnosis includes vasovagal syncope, orthostatic hypotension, cardiac dysrhythmia, cardiac ischemia, , electrolyte abnormality, and anxiety. CBC will be obtained to assess for leukocytosis and anemia. Basic metabolic profile will be obtained to assess for electrolyte abnormality and renal function. Serum hCG will be obtained to assess for . Urinalysis will be obtained to assess for urinary tract infection and hematuria. EKG will be obtained to assess for cardiac dysrhythmia and cardiac ischemia. Lab Data Attestation: I reviewed the patient's lab results. Lab results narrative: The was reviewed and was within normal limits. Basic metabolic profile was reviewed and was within normal limits. Serum hCG was reviewed and is negative. Urinalysis was reviewed. There is no evidence of urinary tract infection or hematuria. Labs: Laboratory Results - last 24 hr 10/06/24 10/06/24 15:30 15:50 WBC 7.2 RBC 4.91 Hgb 14.6 Hct 42.5 MCV 86.6 MCH 29.7 MCHC 34.4 RDW Std Deviation 40.4 RDW Coeff of Franck 12.8 Plt Count 222 MPV 10.3 Immature Gran % (Auto) 0.400 Neut % (Auto) 70.1 H Lymph % (Auto) 22.0 Rincon % (Auto) 6.3 Eos % (Auto) 0.8 Baso % (Auto) 0.4 Absolute Neuts (auto) 5.0 Absolute Lymphs (auto) 1.58 Nucleated RBC % 0 Sodium 140 Potassium 4.1 Chloride 102 Carbon Dioxide 23.7 Anion Gap 14 BUN 12 Creatinine 0.71 Estim Creat Clear Calc 107.61 Est GFR (MDRD) Non-Af 122 BUN/Creatinine Ratio 17.2 Glucose 88 Calcium 9.4 Serum , Qual NEGATIVE Urine Color Yellow Urine Clarity Sl. Cloudy Urine pH 6.0 Ur Specific [place] 1.025 Urine Protein 15 H Urine Glucose (UA) Normal Urine Ketones Negative Urine Occult Blood Negative Urine Nitrite Negative Urine Bilirubin Negative Urine Urobilinogen Normal Ur Leukocyte Esterase Negative Urine RBC 0-5 SEEN Urine WBC 0 SEEN Ur Squamous Epith Cells 0-5 SEEN Urine Bacteria 2+ Urine Mucus 1+ EKG Initial EKG: Attestation: I personally reviewed and interpreted this EKG as follows: Interpretation: Sinus Rhythm (97) and No Acute Injury Pattern Comments: EKG was obtained. On my independent interpretation, it showed a normal sinus rhythm with a rate of 97. MT interval, QRS interval, and QTc intervals were all normal. [place] was normal. There are no acute ST or T wave changes. Prior EKG tracings: available for review Prior: Unchanged (02/27/2021) Treatment and Re-Evaluation :: Patient was given IV fluids. Orthostatic vital signs were obtained and were within normal limits. Patient was advised of her findings. Patient was instructed to drink plenty of fluids. Patient was instructed to follow-up with her primary care physician in 5 to 7 days. Patient understood and was agreeable with plan. All questions were answered. Discharge Plan Triage Chief Complaint: General Illness ED Provider: Panfilo Denton Dx/Rx/DC Orders Clinical Impression: Syncope, Lightheadedness Instructions: ED Fainting, Uncertain Cause Prescriptions: No Action sertraline 100 mg tablet 100 mg PO QDAY Qty: 90 1RF bupropion HCl [Wellbutrin SR] 150 mg tablet sustained-release 12 hr 150 mg PO BID Qty: 60 1RF spironolactone 100 mg tablet 100 mg PO QHS (DME) TENS 502 Device See Rx Instructions .Route Qty: 1 0RF Rx Instructions: As directed Primary Care Provider: Carmencita Bullard Referrals: Carmencita Bullard MD [Primary Care Provider] - 5-7 Days Print Language: Kiswahili Disposition Disposition: Home, Self Care Discharge Date/Time: 10/06/24 17:57
[2024-10-06 17:56] VITALS: BP 112/65; PULSE 85; RESP 16; TEMP 36.6; O2SAT 98
== END 2024-10-06 17:57 | disposition home or self-care (01) ==
PROVIDERS: Emergency Provider Emergency Medicine; PCP Internal Medicine; Visit Provider Emergency Medicine
DX: R55 Syncope and collapse (principal); R00.2 Palpitations; H53.8 Other visual disturbances; R51.9 Headache, unspecified; R11.0 Nausea; K21.9 Gastro-esophageal reflux disease without esophagitis; Z79.899 Other long term (current) drug therapy
CPT/HCPCS: 80048; 81001; 84703; 85025; 93005; 96360; 99284

== ENCOUNTER → 2025-01-31 | Outpatient (CLI) | payer MEDICAID, SELFPAY ==
--- NOTE | 2025-01-31 13:52 | ECHOD_ITS ---
Reason For Study Reason For Study: POTS/SYNCOPE Procedure This was a 2D Doppler, Color Flow transthoracic echocardiogram. Exam performed in department. Left Ventricle The left ventricle is normal in size, thickness, sytstolic function, and diastolic function. The left ventricular ejection fraction is 65 %. Right Ventricle Normal right ventricle. Atria The left and right atria are normal. Mitral Valve Trivial mitral valve insufficiency. Tricuspid Valve Trivial tricuspid valve insufficiency. Normal pulmonary artery pressure. Aortic Valve Trisinus/trileaflet aortic valve. Pulmonic Valve The pulmonic valve is not well visualized. Great Vessels Normal sized aortic root. Pericardium/Pleural No pericardial effusion. MMode/2D Measurements & Calculations LVIDd: 4.0 cm IVSd: 0.77 cm LVOT diam: 1.9 cm LVIDs: 2.4 cm LVPWd: 0.71 cm LVOT area: 2.8 cm2 RVDd: 3.3 cm FS: 40.5 % asc Aorta Diam: 2.3 cm LAV(MOD-bp): 26.5 ml LVAd ap4: 19.8 cm2 LAV(MOD-bp) Indexed: 16.3 ml/m2 LVLd ap4: 7.3 cm LAV(MOD-sp2): 28.9 ml EDV(MOD-sp4): 46.1 ml LAV(MOD-sp4): 23.6 ml EDV(sp4-el): 45.9 ml LVAs ap4: 11.1 cm2 LVLs ap4: 6.2 cm ESV(MOD-sp4): 17.2 ml ESV(sp4-el): 17.0 ml EF(MOD-sp4): 62.7 % EF(sp4-el): 63.0 % LVAd ap2: 19.0 cm2 SV(MOD-sp4): 28.9 ml SV(MOD-sp2): 23.9 ml LVLd ap2: 7.1 cm SI(MOD-sp4): 17.9 ml/m2 SI(MOD-sp2): 14.8 ml/m2 EDV(MOD-sp2): 41.3 ml EDV(sp2-el): 43.2 ml LVAs ap2: 11.1 cm2 LVLs ap2: 5.9 cm ESV(MOD-sp2): 17.4 ml ESV(sp2-el): 17.8 ml EF(MOD-sp2): 57.9 % SV(sp4-el): 28.9 ml Ao sinus diam: 2.[address] Junction: 1.9 cm LA dimension(2D): 2.7 cm LA A4 area: 11.4 cm2 RA A4 area: 8.7 cm2 TAPSE: 1.7 cm Time Measurements MV dec time: 0.12 sec Doppler Measurements & Calculations MV E max gulshan: 87.1 cm/sec Lat Peak E' Gulshan: 23.3 cm/sec Med Peak E' Gulshan: 16.4 cm/sec MV A max gulshan: 78.7 cm/sec E/E' lat: 3.7 E/E' med: 5.3 MV E/A: 1.1 MV dec slope: 714.8 cm/sec2 Ao V2 max: 137.9 cm/sec LV V1 max: 125.8 cm/sec Ao max P.6 mmHg LV V1 max P.3 mmHg Ao V2 mean: 95.1 cm/sec LV V1 mean P.6 mmHg Ao mean P.1 mmHg LV V1 mean: 88.6 cm/sec Ao V2 VTI: 27.4 cm LV V1 VTI: 24.8 cm AV (velocity ratio): 0.90 CLEO(I,D): 2.5 cm2 CLEO(V,D): 2.5 cm2 SV(LVOT): 68.3 ml PA V2 max: 123.5 cm/sec TR max gulshan: 186.0 cm/sec TR max P.8 mmHg ECHO/Echo Complete Interpretation Summary The left ventricular ejection fraction is 65 %. Ordering Physician: Carmencita Bullard Referring Physician: Carmencita Bullard Performed By: Love Regalado TU
== END | disposition home or self-care (01) ==
LOC: CVS 13:48
PROVIDERS: PCP Internal Medicine; Referring Provider Internal Medicine; Visit Provider Internal Medicine
DX: G90.A Postural orthostatic tachycardia syndrome [POTS] (principal); I51.7 Cardiomegaly; R55 Syncope and collapse
CPT/HCPCS: 93306

== ENCOUNTER → 2025-06-11 | Outpatient (CLI) | payer MEDICAID, SELFPAY ==
--- NOTE | 2025-06-11 14:04 | STRESSREP ---
Stress Test Report Exercise stress test. 24-year-old lady with a history of dyspnea on exertion. Stress protocol: Resting EKG demonstrates normal sinus rhythm with a rate of 98 bpm resting blood pressure is 112/72 mmHg. The patient exercised according to the regular Luis Manuel protocol for a total duration of 7 minutes attaining a maximum heart rate of 187 bpm which was 95% of maximum predicted heart rate; the maximum workload was 10 metabolic equivalents. At rest, there were no ST or T wave changes noted and at peak exercise there were no ST changes to meet criteria for ischemia. No clinical angina was noted the test was terminated due dyspnea. The peak blood pressure was 124/72 mmHg. Rate-pressure product was 20,100. Conclusion: Exercise stress test with EKG changes for ischemia at a high workload. No arrhythmias noted.
== END | disposition home or self-care (01) ==
LOC: CVS 12:22
PROVIDERS: PCP Internal Medicine; Referring Provider Nurse Practitioner Family; Visit Provider Nurse Practitioner Family
DX: R06.09 Other forms of dyspnea (principal); G90.A Postural orthostatic tachycardia syndrome [POTS]; R00.2 Palpitations
CPT/HCPCS: 93017